=== PATIENT | male | born 1955 | race African-American/Black ===

== ENCOUNTER 2018-10-04 10:19 | Inpatient (IN) ==
[2018-10-04] MEDS ORDERED: ASPIRIN 325 MG TABLET PO STA (10:42)
[2018-10-04] MEDS ORDERED: methylPREDNISolone SOD SUC 125 MG/2 ML VIAL IV STA (10:42)
[2018-10-04] MEDS ORDERED: ALBUTEROL/IPRATROPIUM 3 ML NEB RESP TX STA (10:42)
[2018-10-04 11:03] LABS: Basophils % 0.2 % (0.0-0.8); Eosinophils % 0.2 % (0.00-10.9); Hematocrit 37.4 VOL% (42.0-52.0); Hemoglobin 12.3 GM/DL (14.0-18.0); Immature Granulocytes % 0.5 %; Immature Granulocytes Absolute 0.03 #; Lymphocytes # 0.9 10*3/uL (1.4-4.0); Lymphocytes % 14.8 % (21.2-54.2); Mean Corpuscular HGB Conc 32.9 GM/DL (32-36); Mean Corpuscular Volume 87.6 FL (87-102); Mean Platelet Volume 11.3 FL (9.6-12.0); Neutrophils % 76.3 % (38.7-73.9); Platelet Count 167 T/CUMM (130-400); Red Blood Count 4.27 MC/CUMM (3.8-5.5); Red Cell Distribution Width 17.3 % (9.3-17.3); White Blood Count 6.1 T/CUMM (4-12)
[2018-10-04 11:22] LABS: Albumin 3.5 G/DL (3.4-5.0); Bilirubin,Total 1.3 MG/DL (0.2-1.0); Calcium 8.8 MG/DL (8.5-10.1); Osmolality,Calculated 274.8 MOS/KG (273-304); Total Protein 7.2 G/DL (6.4-8.3)
[2018-10-04] MEDS ORDERED: ALBUTEROL 2.5 MG/3 ML NEB RESP TX STA (12:14)
[2018-10-04] MEDS ORDERED: ONDANSETRON 4 MG/2 ML VIAL IV PRN (14:37)
[2018-10-04] MEDS ORDERED: NICOTINE 21 MG/24 HR PATCH TRANSDERM PRN (14:37)
[2018-10-04] MEDS ORDERED: AZITHROMYCIN INJ 500 MG in SODIUM CHLORIDE 0.9% 250 ML IV SCH (15:00)
[2018-10-04] MEDS ORDERED: ENOXAPARIN 40 MG/0.4 ML SYRINGE SUBCUT SCH (15:00)
[2018-10-04] MEDS ORDERED: LORazepam 2 MG/1 ML VIAL IV PRN (15:14)
[2018-10-04] MEDS ORDERED: MAGNESIUM SULF RIDER 2 GM in PREMIX 1 EACH IV ONE (15:17)
[2018-10-04] MEDS ORDERED: MAGNESIUM SULF RIDER 4 GM in PREMIX 1 EACH IV PRN (15:18)
[2018-10-04 15:31] LABS: PT Patient Result 10.9 SECS; Partial Thromboplastin Time 25.9 SECS (0-40)
[2018-10-04 15:35] LABS: Risk Ratio 1.4; Thyroid Stimulating Hormone 0.345 uIU/ml (0.358-3.74); VLDL CHOLESTEROL 15.4 MG/DL
[2018-10-04] MEDS: SODIUM CHLORIDE 0.9% 1,000 ML IV SCH (15:56)
[2018-10-04 16:20] LABS: Folate 7.9 NG/ML (5.4-24.0)
[2018-10-04 16:30] LABS: Free T4 (Free Thyroxine) 0.89 NG/DL (0.76-1.46)
[2018-10-04] MEDS: ENOXAPARIN 80 MG/0.8 ML SYRINGE SUBCUT SCH (18:26)
[2018-10-04] MEDS: cefTRIAXone 1,000 MG in SYRINGE 1 EACH IV SCH (18:26)
[2018-10-04] MEDS: POTASSIUM CHLORIDE RIDER 10 MEQ in PREMIX 1 EACH IV SCH ×5 (18:32→23:10)
[2018-10-04] MEDS ORDERED: POTASSIUM CHLORIDE 20 MEQ TABLET PO SCH (21:00)
[2018-10-05] MEDS: POTASSIUM CHLORIDE RIDER 10 MEQ in PREMIX 1 EACH IV SCH (00:50)
[2018-10-05] MEDS: SODIUM CHLORIDE 0.9% 1,000 ML IV SCH (02:11)
[2018-10-05] MEDS: ENOXAPARIN 80 MG/0.8 ML SYRINGE SUBCUT SCH (05:28)
[2018-10-05 05:29] LABS: Hematocrit 36.3 VOL% (42.0-52.0); Hemoglobin 11.8 GM/DL (14.0-18.0); Immature Granulocytes % 0.6 %; Immature Granulocytes Absolute 0.03 #; Lymphocytes # 0.9 10*3/uL (1.4-4.0); Lymphocytes % 16.7 % (21.2-54.2); Mean Corpuscular HGB Conc 32.5 GM/DL (32-36); Mean Corpuscular Volume 87.1 FL (87-102); Mean Platelet Volume 12.2 FL (9.6-12.0); Monocytes % 10.2 % (1.7-12.7); Neutrophils % 72.5 % (38.7-73.9); Platelet Count 149 T/CUMM (130-400); Red Blood Count 4.17 MC/CUMM (3.8-5.5); Red Cell Distribution Width 17.2 % (9.3-17.3); White Blood Count 5.1 T/CUMM (4-12)
[2018-10-05 06:05] LABS: Albumin 2.8 G/DL (3.4-5.0); Calcium 8.9 MG/DL (8.5-10.1); Osmolality,Calculated 274.7 MOS/KG (273-304); Total Protein 6.9 G/DL (6.4-8.3)
[2018-10-05] MEDS: POTASSIUM CHLORIDE RIDER 10 MEQ in PREMIX 1 EACH IV PRN (08:11)
[2018-10-05 08:33] LABS: CKMB % 2.1 %
[2018-10-05 08:36] LABS: Troponin I 2.89 NG/ML (0.00-0.045)
[2018-10-05] MEDS ORDERED: amLODIPine 5 MG TABLET PO SCH (09:00)
[2018-10-05] MEDS ORDERED: METOPROLOL TARTRATE 25 MG TABLET PO SCH (09:00)
[2018-10-05] MEDS ORDERED: NITROGLYCERIN SL 0.4 MG TABLET SL PRN (09:05)
[2018-10-05] MEDS: MULTIVITAMIN (CENTRUM) TABLET PO SCH (09:23)
[2018-10-05] MEDS: FOLIC ACID 1 MG TABLET PO SCH (09:23)
[2018-10-05] MEDS: ALLOPURINOL 300 MG TABLET PO SCH (09:23)
[2018-10-05] MEDS: ROSUVASTATIN 20 MG TABLET PO SCH (09:23)
[2018-10-05] MEDS: ASPIRIN EC 81 MG TABLET PO SCH (09:24)
[2018-10-05] MEDS: PANTOPRAZOLE 40 MG TABLET PO SCH (09:24)
[2018-10-05] MEDS: THIAMINE 100 MG TABLET PO SCH (09:24)
[2018-10-05] MEDS ORDERED: diphenhydrAMINE CAP 25 MG CAPSULE PO ONE (09:35)
[2018-10-05] MEDS ORDERED: MAGNESIUM SULF RIDER 2 GM in PREMIX 1 EACH IV PRN (09:35)
[2018-10-05] MEDS ORDERED: DIAZEPAM 5 MG TABLET PO ONE (09:35)
[2018-10-05] MEDS ORDERED: POTASSIUM CHLORIDE RIDER 10 MEQ in PREMIX 1 EACH IV PRN (09:35)
[2018-10-05] MEDS ORDERED: LIDOCAINE 1% 20 ML VIAL ONE (11:10)
[2018-10-05] MEDS ORDERED: MIDAZOLAM 2 MG/2 ML VIAL ONE (11:39)
[2018-10-05] MEDS ORDERED: HYDROmorphone 2 MG/1 ML VIAL ONE (11:39)
[2018-10-05] MEDS ORDERED: ACETAMINOPHEN 325 MG TABLET PO PRN (12:15)
[2018-10-05] MEDS ORDERED: FUROSEMIDE 40 MG/4 ML VIAL ONE (12:16)
[2018-10-05] MEDS: SPIRONOLACTONE 25 MG TABLET PO SCH (14:15)
[2018-10-05] MEDS: FUROSEMIDE 40 MG/4 ML VIAL IV SCH (15:35)
[2018-10-05] MEDS: cefTRIAXone 1,000 MG in SYRINGE 1 EACH IV SCH (15:35)
[2018-10-05] MEDS: METOPROLOL SUCCINATE XL 25 MG TABLET PO SCH (22:03)
[2018-10-06 02:04] LABS: Basophils % 0.3 % (0.0-0.8); Eosinophils % 0.4 % (0.00-10.9); Hematocrit 42.3 VOL% (42.0-52.0); Hemoglobin 13.9 GM/DL (14.0-18.0); Immature Granulocytes % 0.6 %; Immature Granulocytes Absolute 0.06 #; Lymphocytes % 21.3 % (21.2-54.2); Mean Corpuscular HGB Conc 32.9 GM/DL (32-36); Mean Corpuscular Volume 87.6 FL (87-102); Mean Platelet Volume 10.6 FL (9.6-12.0); Monocytes % 6.5 % (1.7-12.7); Neutrophils % 70.9 % (38.7-73.9); Platelet Count 130 T/CUMM (130-400); Red Blood Count 4.83 MC/CUMM (3.8-5.5); Red Cell Distribution Width 17.1 % (9.3-17.3); White Blood Count 9.6 T/CUMM (4-12)
[2018-10-06 02:19] LABS: Albumin 3.2 G/DL (3.4-5.0); Bilirubin,Total 1.2 MG/DL (0.2-1.0); Calcium 9.4 MG/DL (8.5-10.1); Osmolality,Calculated 270.8 MOS/KG (273-304); Total Protein 7.9 G/DL (6.4-8.3)
[2018-10-06] MEDS: MAGNESIUM SULF RIDER 2 GM in PREMIX 1 EACH IV PRN (02:36)
[2018-10-06] MEDS: POTASSIUM CHLORIDE RIDER 10 MEQ in PREMIX 1 EACH IV PRN ×2 (02:36→05:20)
[2018-10-06] MEDS: POTASSIUM CHLORIDE 20 MEQ TABLET PO PRN ×6 (06:45→23:42)
[2018-10-06] MEDS: FOLIC ACID 1 MG TABLET PO SCH (09:21)
[2018-10-06] MEDS: THIAMINE 100 MG TABLET PO SCH (09:21)
[2018-10-06] MEDS: ROSUVASTATIN 20 MG TABLET PO SCH (09:21)
[2018-10-06] MEDS: MULTIVITAMIN (CENTRUM) TABLET PO SCH (09:21)
[2018-10-06] MEDS: METOPROLOL SUCCINATE XL 25 MG TABLET PO SCH ×2 (09:22→21:41)
[2018-10-06] MEDS: DOCUSATE SODIUM 100 MG CAPSULE PO PRN (09:22)
[2018-10-06] MEDS: ALLOPURINOL 300 MG TABLET PO SCH (09:22)
[2018-10-06] MEDS: FUROSEMIDE 40 MG/4 ML VIAL IV SCH (09:22)
[2018-10-06] MEDS: ASPIRIN EC 81 MG TABLET PO SCH (09:22)
[2018-10-06] MEDS: SPIRONOLACTONE 25 MG TABLET PO SCH (09:22)
[2018-10-06] MEDS: PANTOPRAZOLE 40 MG TABLET PO SCH (09:22)
[2018-10-06] MEDS: ENOXAPARIN 30 MG/0.3 ML SYRINGE SUBCUT SCH (09:22)
[2018-10-06] MEDS: cefTRIAXone 1,000 MG in SYRINGE 1 EACH IV SCH (15:34)
[2018-10-06] MEDS ORDERED: FUROSEMIDE 40 MG/4 ML VIAL IV ONE (16:00)
[2018-10-06] MEDS: POTASSIUM CHLORIDE 20 MEQ TABLET PO SCH (21:37)
[2018-10-06] MEDS: MAGNESIUM CHLORIDE 64 MG TABLET PO SCH (21:37)
[2018-10-07] MEDS: POTASSIUM CHLORIDE 20 MEQ TABLET PO PRN ×6 (01:45→16:05)
[2018-10-07] MEDS: MAGNESIUM SULF RIDER 2 GM in PREMIX 1 EACH IV PRN (01:55)
[2018-10-07 05:03] LABS: Basophils % 0.1 % (0.0-0.8); Eosinophils % 0.6 % (0.00-10.9); Hematocrit 36.4 VOL% (42.0-52.0); Hemoglobin 11.2 GM/DL (14.0-18.0); Immature Granulocytes % 0.6 %; Immature Granulocytes Absolute 0.04 #; Lymphocytes # 1.7 10*3/uL (1.4-4.0); Lymphocytes % 24.3 % (21.2-54.2); Mean Corpuscular HGB Conc 30.8 GM/DL (32-36); Mean Corpuscular Volume 90.3 FL (87-102); Mean Platelet Volume 12.2 FL (9.6-12.0); Monocytes % 14.5 % (1.7-12.7); Neutrophils % 59.9 % (38.7-73.9); Platelet Count 111 T/CUMM (130-400); Red Blood Count 4.03 MC/CUMM (3.8-5.5); Red Cell Distribution Width 17.3 % (9.3-17.3)
[2018-10-07 05:31] LABS: Albumin 2.4 G/DL (3.4-5.0); Bilirubin,Total 0.7 MG/DL (0.2-1.0); Osmolality,Calculated 273.7 MOS/KG (273-304); Total Protein 6.5 G/DL (6.4-8.3)
[2018-10-07] MEDS: ENOXAPARIN 30 MG/0.3 ML SYRINGE SUBCUT SCH (08:40)
[2018-10-07] MEDS: FUROSEMIDE 40 MG TABLET PO SCH (08:42)
[2018-10-07] MEDS: SPIRONOLACTONE 25 MG TABLET PO SCH (08:42)
[2018-10-07] MEDS: THIAMINE 100 MG TABLET PO SCH (08:42)
[2018-10-07] MEDS: POTASSIUM CHLORIDE 20 MEQ TABLET PO SCH ×2 (08:42→21:00)
[2018-10-07] MEDS: PANTOPRAZOLE 40 MG TABLET PO SCH (08:42)
[2018-10-07] MEDS: METOPROLOL SUCCINATE XL 25 MG TABLET PO SCH ×2 (08:43→21:00)
[2018-10-07] MEDS: ROSUVASTATIN 20 MG TABLET PO SCH (08:43)
[2018-10-07] MEDS: MULTIVITAMIN (CENTRUM) TABLET PO SCH (08:43)
[2018-10-07] MEDS: ALLOPURINOL 300 MG TABLET PO SCH (08:43)
[2018-10-07] MEDS: FOLIC ACID 1 MG TABLET PO SCH (08:43)
[2018-10-07] MEDS: DOCUSATE SODIUM 100 MG CAPSULE PO PRN (08:43)
[2018-10-07] MEDS: MAGNESIUM CHLORIDE 64 MG TABLET PO SCH ×2 (08:43→21:00)
[2018-10-07] MEDS: ASPIRIN EC 81 MG TABLET PO SCH (08:43)
[2018-10-07] MEDS: cefTRIAXone 1,000 MG in SYRINGE 1 EACH IV SCH (16:05)
[2018-10-07] MEDS: BUDESONIDE/FORMOTEROL 160-4.5 INHALER 6 GM INH SCH (21:00)
[2018-10-08 05:25] LABS: Basophils % 0.3 % (0.0-0.8); Eosinophils # 0.1 10*3/uL (0.0-0.87); Hematocrit 36.5 VOL% (42.0-52.0); Hemoglobin 11.5 GM/DL (14.0-18.0); Immature Granulocytes % 0.5 %; Immature Granulocytes Absolute 0.03 #; Lymphocytes # 1.8 10*3/uL (1.4-4.0); Lymphocytes % 26.7 % (21.2-54.2); Mean Corpuscular HGB Conc 31.5 GM/DL (32-36); Mean Corpuscular Volume 90.6 FL (87-102); Mean Platelet Volume 12.1 FL (9.6-12.0); Monocytes % 15.9 % (1.7-12.7); Neutrophils % 54.6 % (38.7-73.9); Platelet Count 124 T/CUMM (130-400); Red Blood Count 4.03 MC/CUMM (3.8-5.5); Red Cell Distribution Width 17.4 % (9.3-17.3); White Blood Count 6.6 T/CUMM (4-12)
[2018-10-08 05:50] LABS: Calcium 9.3 MG/DL (8.5-10.1); Osmolality,Calculated 272.7 MOS/KG (273-304)
[2018-10-08 07:03] LABS: Eosinophils 2 % (0-10); Lymphocytes 32 % (20-55); Segmented Neutrophils 48 % (50-85); Total Cells Counted 100
[2018-10-08 07:04] LABS: Hypochromasia 2+; Platelet Estimate Decreased; Target Cells 1+
[2018-10-08 07:05] LABS: Polychromasia Few
[2018-10-08] MEDS ORDERED: predniSONE 20 MG TABLET PO SCH (09:00)
[2018-10-08] MEDS: ENOXAPARIN 30 MG/0.3 ML SYRINGE SUBCUT SCH (09:39)
[2018-10-08] MEDS: ROSUVASTATIN 20 MG TABLET PO SCH (09:39)
[2018-10-08] MEDS: POTASSIUM CHLORIDE 20 MEQ TABLET PO SCH (09:40)
[2018-10-08] MEDS: METOPROLOL SUCCINATE XL 25 MG TABLET PO SCH (09:40)
[2018-10-08] MEDS: ASPIRIN EC 81 MG TABLET PO SCH (09:40)
[2018-10-08] MEDS: FOLIC ACID 1 MG TABLET PO SCH (09:40)
[2018-10-08] MEDS: SPIRONOLACTONE 25 MG TABLET PO SCH (09:40)
[2018-10-08] MEDS: ALLOPURINOL 300 MG TABLET PO SCH (09:41)
[2018-10-08] MEDS: MAGNESIUM CHLORIDE 64 MG TABLET PO SCH (09:41)
[2018-10-08] MEDS: THIAMINE 100 MG TABLET PO SCH (09:41)
[2018-10-08] MEDS: PANTOPRAZOLE 40 MG TABLET PO SCH (09:41)
[2018-10-08] MEDS: MULTIVITAMIN (CENTRUM) TABLET PO SCH (09:41)
[2018-10-08] MEDS: FUROSEMIDE 40 MG TABLET PO SCH (09:41)
[2018-10-08 12:13] VITALS: BP 114/75
[2018-10-08] MEDS: BUDESONIDE/FORMOTEROL 160-4.5 INHALER 6 GM INH SCH (12:49)
== END 2018-10-08 14:45 | disposition home or self-care (01) | DRG 280 ==
LOC: EDBD → EDUNIT# → N.ED 10:19 → N.EDINP 14:37 → N.TELEN 15:48
PROVIDERS: ADMIT Internal Medicine; ATTEND Internal Medicine
PROC: CLCCHCL (ICD-10-PCS; 2018-10-05 10:15)

== ENCOUNTER 2020-08-09 05:09 | Inpatient (IN) ==
[2020-08-09] MEDS ORDERED: ONDANSETRON 4 MG/2 ML VIAL IV STA ×2 (05:32→07:06)
[2020-08-09] MEDS ORDERED: SODIUM CHLORIDE 0.9% 1,000 ML IV STA (05:32)
[2020-08-09 06:04] LABS: Basophils % 0.1 % (0.0-0.8); Eosinophils # 0.2 10*3/uL (0.0-0.87); Eosinophils % 1.7 % (0.00-10.9); Hematocrit 40.3 VOL% (42.0-52.0); Hemoglobin 12.6 GM/DL (14.0-18.0); Immature Granulocytes % 0.4 %; Immature Granulocytes Absolute 0.04 #; Lymphocytes % 11.3 % (21.2-54.2); Mean Corpuscular HGB Conc 31.3 GM/DL (32-36); Mean Platelet Volume 11.6 FL (9.6-12.0); Neutrophils % 79.5 % (38.7-73.9); Platelet Count 343 T/CUMM (130-400); Red Blood Count 4.58 MC/CUMM (3.8-5.5); Red Cell Distribution Width 15.6 % (9.3-17.3); White Blood Count 8.9 T/CUMM (4-12)
[2020-08-09 06:31] LABS: Albumin 3.1 G/DL (3.4-5.0); Bilirubin,Total 0.6 MG/DL (0.2-1.0); Calcium 8.9 MG/DL (8.5-10.1); Osmolality,Calculated 275.5 MOS/KG (273-304); Total Protein 6.7 G/DL (6.4-8.2)
[2020-08-09 06:43] LABS: Hypochromasia 1+; Microcytosis 1+; Platelet Estimate Normal
[2020-08-09] MEDS ORDERED: HYDROmorphone 2 MG/1 ML VIAL IV STA (07:06)
[2020-08-09 08:31] LABS: Bacteria,Urine Occasional /HPF (Few); Bilirubin,Urine Negative (Negative); Blood, Urine Small mg/dL (Negative); Glucose,Urine (UA) Negative (Negative); Ketones,Urine Negative (Negative); Mucus,Urine Occasional /LPF (Occasional); Nitrite,Urine Negative (Negative); Protein,Urine Negative; RBC,Urine 3 /HPF (0-4); Squamous Epithelial Cell,Urine Occasional /HPF (0-10); Urine Appearance CLEAR (Clear); Urine Color Yellow (Yellow); Urine Specific Gravity 1.013 (1.001-1.035); Urine Urobilinogen < 2.0 EU/DL (0.2-1.0); WBC,Urine <1 /HPF (0-6)
[2020-08-09] MEDS ORDERED: ACETAMINOPHEN 325 MG TABLET PO PRN (10:19)
[2020-08-09] MEDS ORDERED: PROMETHAZINE 25 MG/1 ML VIAL IM PRN (10:19)
[2020-08-09] MEDS ORDERED: ONDANSETRON 4 MG/2 ML VIAL IV PRN (10:19)
[2020-08-09] MEDS ORDERED: carvediloL 3.125 MG TABLET PO SCH (10:30)
[2020-08-09] MEDS: LACTATED RINGERS 1,000 ML IV SCH ×2 (11:03→17:42)
[2020-08-09] MEDS ORDERED: MIDODRINE 5 MG TABLET PO SCH (15:00)
[2020-08-09] MEDS: MIDODRINE 5 MG TABLET PO SCH ×2 (15:08→22:16)
[2020-08-09] MEDS ORDERED: LACTATED RINGERS 1,000 ML IV ONE (17:39)
[2020-08-09] MEDS: FLUDROCORTISONE 0.1 MG TABLET PO SCH (18:00)
[2020-08-09] MEDS ORDERED: PNEUMOCOCCAL VACCINE (13 VALENT) 0.5 ML SYRINGE IM ONE (19:34)
[2020-08-10] MEDS: LACTATED RINGERS 1,000 ML IV SCH ×4 (02:19→11:01)
[2020-08-10 05:45] LABS: Basophils % 0.3 % (0.0-0.8); Eosinophils # 0.2 10*3/uL (0.0-0.87); Eosinophils % 2.4 % (0.00-10.9); Hematocrit 33.2 VOL% (42.0-52.0); Hemoglobin 10.7 GM/DL (14.0-18.0); Immature Granulocytes % 0.3 %; Immature Granulocytes Absolute 0.02 #; Lymphocytes # 2.3 10*3/uL (1.4-4.0); Lymphocytes % 34.9 % (21.2-54.2); Mean Corpuscular HGB Conc 32.2 GM/DL (32-36); Mean Corpuscular Volume 86.9 FL (87-102); Mean Platelet Volume 11.1 FL (9.6-12.0); Monocytes % 7.2 % (1.7-12.7); Neutrophils % 54.9 % (38.7-73.9); Platelet Count 289 T/CUMM (130-400); Red Blood Count 3.82 MC/CUMM (3.8-5.5); Red Cell Distribution Width 15.7 % (9.3-17.3); White Blood Count 6.5 T/CUMM (4-12)
[2020-08-10] MEDS ORDERED: GABAPENTIN 300 MG CAPSULE PO ONE (06:00)
[2020-08-10] MEDS ORDERED: ALVIMOPAN 12 MG CAPSULE PO ONE (06:00)
[2020-08-10] MEDS ORDERED: IBUPROFEN 600 MG TABLET PO ONE (06:00)
[2020-08-10 06:12] LABS: Calcium 8.6 MG/DL (8.5-10.1); Osmolality,Calculated 276.3 MOS/KG (273-304); Potassium 3.4 MMOL/L (3.5-5.1)
[2020-08-10] MEDS ORDERED: ROCURONIUM 50 MG/5 ML VIAL IV ONE (06:13)
[2020-08-10] MEDS ORDERED: LIDOCAINE 2% 5 ML VIAL ONE (06:13)
[2020-08-10] MEDS ORDERED: propofoL 200 MG/20 ML VIAL IV ONE (06:13)
[2020-08-10] MEDS ORDERED: fentaNYL 100 MCG/2 ML VIAL ONE (06:14)
[2020-08-10 06:16] LABS: Eosinophils 3 % (0-10); Lymphocytes 27 % (20-55); Platelet Estimate Normal; Segmented Neutrophils 63 % (50-85); Total Cells Counted 100
[2020-08-10] MEDS ORDERED: MIDAZOLAM 2 MG/2 ML VIAL ONE (06:18)
[2020-08-10] MEDS ORDERED: SUCCINYLCHOLINE 200 MG/10 ML VIAL ONE (06:18)
[2020-08-10] MEDS ORDERED: BUPIVACAINE MPF 0.25% 30 ML VIAL ONE ×2 (06:33→06:39)
[2020-08-10] MEDS ORDERED: DEXAMETHASONE 4 MG/1 ML VIAL ONE (06:34)
[2020-08-10] MEDS ORDERED: BUPIVACAINE 0.5% 50 ML VIAL ONE (06:41)
[2020-08-10] MEDS ORDERED: PHENYLEPHRINE 1 MG/10 ML SYRINGE IV ONE (07:22)
[2020-08-10] MEDS ORDERED: LACTATED RINGERS 1,000 ML IV ONE (07:22)
[2020-08-10] MEDS ORDERED: ERTAPENEM 1,000 MG in SODIUM CHLORIDE 0.9% 100 ML IV ONE (07:30)
[2020-08-10] MEDS ORDERED: PHENYLEPHRINE DRIP 20 MG/250 ML PREMIX IV ONE (07:33)
[2020-08-10] MEDS ORDERED: ERTAPENEM 1,000 MG VIAL ONE (07:37)
[2020-08-10] MEDS ORDERED: ONDANSETRON 4 MG/2 ML VIAL ONE (08:24)
[2020-08-10] MEDS: MIDODRINE 5 MG TABLET PO SCH ×3 (08:35→20:38)
[2020-08-10] MEDS ORDERED: INDOCYANINE GREEN 25 MG VIAL IV ONE (09:01)
[2020-08-10] MEDS ORDERED: TISSUE ADHESIVE 1 EACH APPLICATOR TOP ONE (09:01)
[2020-08-10] MEDS ORDERED: SEVOFLURANE 1 UNIT/15 MINUTE INH ONE ×3 (09:26→09:40)
[2020-08-10] MEDS ORDERED: NEOSTIGMINE 10 MG/10 ML VIAL ONE (09:44)
[2020-08-10] MEDS ORDERED: GLYCOPYRROLATE 0.4 MG/2 ML VIAL ONE (09:44)
[2020-08-10] MEDS ORDERED: ONDANSETRON 4 MG/2 ML VIAL IV PRN (10:19)
[2020-08-10] MEDS ORDERED: POTASSIUM CHLORIDE 20 MEQ/15 ML UDCUP PO ONE (10:55)
[2020-08-10] MEDS: FLUDROCORTISONE 0.1 MG TABLET PO SCH ×2 (11:33→20:38)
[2020-08-10] MEDS: ROSUVASTATIN 20 MG TABLET PO SCH (11:33)
[2020-08-10] MEDS: KETOROLAC 15 MG/1 ML VIAL IV SCH ×2 (11:35→15:47)
[2020-08-10 11:53] LABS: Eosinophils % 0.6 % (0.00-10.9); Hematocrit 36.7 VOL% (42.0-52.0); Hemoglobin 11.3 GM/DL (14.0-18.0); Immature Granulocytes % 0.2 %; Immature Granulocytes Absolute 0.01 #; Lymphocytes # 0.9 10*3/uL (1.4-4.0); Lymphocytes % 17.7 % (21.2-54.2); Mean Corpuscular HGB Conc 30.8 GM/DL (32-36); Mean Corpuscular Volume 89.5 FL (87-102); Mean Platelet Volume 11.5 FL (9.6-12.0); Monocytes % 1.9 % (1.7-12.7); Neutrophils % 79.6 % (38.7-73.9); Platelet Count 338 T/CUMM (130-400); Red Cell Distribution Width 15.9 % (9.3-17.3); White Blood Count 5.2 T/CUMM (4-12)
[2020-08-10 12:19] LABS: Anisocytosis Slight; Band Neutrophils 22 % (0-10); Eosinophils 2 % (0-10); Lymphocytes 18 % (20-55); Macrocytosis Slight; Metamyelocytes 1 %; Platelet Estimate Normal; Segmented Neutrophils 55 % (50-85); Total Cells Counted 100
[2020-08-10 12:25] LABS: Calcium 8.5 MG/DL (8.5-10.1); Osmolality,Calculated 271.7 MOS/KG (273-304); Potassium 3.3 MMOL/L (3.5-5.1)
[2020-08-10] MEDS ORDERED: POTASSIUM CHLORIDE RIDER 10 MEQ in PREMIX 1 EACH IV PRN (13:27)
[2020-08-10] MEDS: HYDROmorphone 2 MG/1 ML VIAL IV PRN (16:38)
[2020-08-10] MEDS: ALVIMOPAN 12 MG CAPSULE PO SCH (20:38)
[2020-08-11] MEDS: KETOROLAC 15 MG/1 ML VIAL IV SCH ×5 (00:15→23:42)
[2020-08-11] MEDS: ENOXAPARIN 40 MG/0.4 ML SYRINGE SUBCUT SCH (03:40)
[2020-08-11] MEDS: LACTATED RINGERS 1,000 ML IV SCH ×3 (03:43→18:43)
[2020-08-11] MEDS ORDERED: ENOXAPARIN 40 MG/0.4 ML SYRINGE SUBCUT SCH (05:00)
[2020-08-11 06:55] LABS: Basophils % 0.2 % (0.0-0.8); Hematocrit 30.6 VOL% (42.0-52.0); Hemoglobin 9.9 GM/DL (14.0-18.0); Immature Granulocytes % 0.3 %; Immature Granulocytes Absolute 0.03 #; Lymphocytes # 1.3 10*3/uL (1.4-4.0); Lymphocytes % 12.3 % (21.2-54.2); Mean Corpuscular HGB Conc 32.4 GM/DL (32-36); Mean Corpuscular Volume 86.4 FL (87-102); Mean Platelet Volume 11.6 FL (9.6-12.0); Monocytes % 8.6 % (1.7-12.7); Neutrophils % 78.6 % (38.7-73.9); Platelet Count 291 T/CUMM (130-400); Red Blood Count 3.54 MC/CUMM (3.8-5.5); Red Cell Distribution Width 15.8 % (9.3-17.3); White Blood Count 10.8 T/CUMM (4-12)
[2020-08-11 07:13] LABS: Calcium 8.6 MG/DL (8.5-10.1); Osmolality,Calculated 276.4 MOS/KG (273-304); Potassium 3.9 MMOL/L (3.5-5.1)
[2020-08-11] MEDS ORDERED: MAGNESIUM SULF RIDER 4 GM in PREMIX 1 EACH IV PRN (07:20)
[2020-08-11] MEDS ORDERED: MAGNESIUM SULF RIDER 2 GM in PREMIX 1 EACH IV PRN (07:20)
[2020-08-11] MEDS: ROSUVASTATIN 20 MG TABLET PO SCH (09:11)
[2020-08-11] MEDS: ALVIMOPAN 12 MG CAPSULE PO SCH ×2 (09:11→20:44)
[2020-08-11] MEDS: FLUDROCORTISONE 0.1 MG TABLET PO SCH ×2 (09:12→20:54)
[2020-08-11] MEDS: MIDODRINE 5 MG TABLET PO SCH ×3 (09:12→20:44)
[2020-08-11 10:28] LABS: Bilirubin,Urine Negative (Negative); Blood, Urine Large mg/dL (Negative); Glucose,Urine (UA) Negative (Negative); Ketones,Urine Negative (Negative); Mucus,Urine Occasional /LPF (Occasional); Nitrite,Urine Negative (Negative); Protein,Urine Negative; RBC,Urine 298 /HPF (0-4); Squamous Epithelial Cell,Urine Occasional /HPF (0-10); Urine Appearance CLEAR (Clear); Urine Color Yellow (Yellow); Urine Specific Gravity 1.013 (1.001-1.035); WBC,Urine 3 /HPF (0-6)
[2020-08-11] MEDS ORDERED: LIDOCAINE 2% TOP JELLY 20 ML VIAL INTRAURETH ONE (10:57)
[2020-08-11] MEDS: HYDROmorphone 2 MG/1 ML VIAL IV PRN (19:34)
[2020-08-12] MEDS: ENOXAPARIN 40 MG/0.4 ML SYRINGE SUBCUT SCH (03:43)
[2020-08-12] MEDS: LACTATED RINGERS 1,000 ML IV SCH (03:44)
[2020-08-12] MEDS: KETOROLAC 15 MG/1 ML VIAL IV SCH ×2 (03:45→11:42)
[2020-08-12 06:17] LABS: Basophils % 0.1 % (0.0-0.8); Eosinophils # 0.1 10*3/uL (0.0-0.87); Eosinophils % 0.5 % (0.00-10.9); Hematocrit 30.3 VOL% (42.0-52.0); Hemoglobin 9.6 GM/DL (14.0-18.0); Immature Granulocytes % 0.6 %; Immature Granulocytes Absolute 0.07 #; Lymphocytes # 1.1 10*3/uL (1.4-4.0); Lymphocytes % 10.2 % (21.2-54.2); Mean Corpuscular HGB Conc 31.7 GM/DL (32-36); Mean Corpuscular Volume 87.1 FL (87-102); Mean Platelet Volume 11.3 FL (9.6-12.0); Monocytes % 8.6 % (1.7-12.7); Platelet Count 314 T/CUMM (130-400); Red Blood Count 3.48 MC/CUMM (3.8-5.5); Red Cell Distribution Width 15.5 % (9.3-17.3)
[2020-08-12 06:58] LABS: Calcium 8.8 MG/DL (8.5-10.1); Osmolality,Calculated 273.5 MOS/KG (273-304); Potassium 3.4 MMOL/L (3.5-5.1)
[2020-08-12 07:51] LABS: Anisocytosis 1+; Band Neutrophils 9 % (0-10); Burr Cells Few; Hypochromasia 1+; Lymphocytes 13 % (20-55); Macrocytosis 1+; Platelet Estimate Normal; Segmented Neutrophils 71 % (50-85); Total Cells Counted 100
[2020-08-12 08:35] VITALS: BP 107/64
[2020-08-12] MEDS: ROSUVASTATIN 20 MG TABLET PO SCH (08:44)
[2020-08-12] MEDS: ALVIMOPAN 12 MG CAPSULE PO SCH (08:44)
[2020-08-12] MEDS: FLUDROCORTISONE 0.1 MG TABLET PO SCH (08:44)
[2020-08-12] MEDS: MIDODRINE 5 MG TABLET PO SCH (08:45)
[2020-08-12] MEDS ORDERED: TAMSULOSIN 0.4 MG CAPSULE PO SCH (09:00)
== END 2020-08-12 13:33 | disposition home or self-care (01) | DRG 330 ==
LOC: N.ED 05:09 → N.EDINP 08:51 → N.3E 09:09
PROVIDERS: ADMIT Surgery; ATTEND Surgery

== ENCOUNTER 2020-08-28 22:43 | Inpatient (IN) ==
[2020-08-28] MEDS ORDERED: SODIUM CHLORIDE 0.9% 1,000 ML IV STA (23:08)
[2020-08-28 23:26] LABS: Basophils % 0.2 % (0.0-0.8); Hematocrit 26.5 VOL% (42.0-52.0); Hemoglobin 9.3 GM/DL (14.0-18.0); Immature Granulocytes % 1.4 %; Immature Granulocytes Absolute 0.36 #; Lymphocytes # 1.7 10*3/uL (1.4-4.0); Lymphocytes % 6.4 % (21.2-54.2); Mean Corpuscular HGB Conc 35.1 GM/DL (32-36); Mean Corpuscular Volume 77.3 FL (87-102); Mean Platelet Volume 11.4 FL (9.6-12.0); Monocytes % 8.4 % (1.7-12.7); Neutrophils % 83.6 % (38.7-73.9); Platelet Count 574 T/CUMM (130-400); Red Blood Count 3.43 MC/CUMM (3.8-5.5); Red Cell Distribution Width 15.7 % (9.3-17.3); White Blood Count 26.1 T/CUMM (4-12)
[2020-08-28 23:35] LABS: INR 1.2; PT Patient Result 13.7 SECS (9.8-11.9)
[2020-08-28 23:55] LABS: Alanine Aminotransferase 16 U/L (16-61); Albumin 1.6 G/DL (3.4-5.0); Alkaline Phosphatase 116 U/L (45-117); Aspartate Amino Transferase 38 U/L (0-37); Blood Urea Nitrogen 52 MG/DL (7-18); Calcium 8.1 MG/DL (8.5-10.1); Carbon Dioxide 33 MMOL/L (21-32); Estimated Glom Filtration Rate 14 ML/MIN; Glucose 100 MG/DL (74-106); Osmolality,Calculated 286.8 MOS/KG (273-304); Potassium 3.9 MMOL/L (3.5-5.1); Sodium 137 MMOL/L (136-145); Total Protein 6.4 G/DL (6.4-8.2); Troponin I < 0.015 NG/ML (0.00-0.045)
[2020-08-29 00:19] LABS: Lymphocytes 4 % (20-55); Platelet Estimate Increased; Segmented Neutrophils 92 % (50-85); Total Cells Counted 100
[2020-08-29 00:20] LABS: Microcytosis 2+
[2020-08-29 00:21] LABS: Hypochromasia Slight; Polychromasia Slight; Target Cells 1+
[2020-08-29] MEDS ORDERED: PHENYLEPHRINE DRIP 40 MG/250 ML PREMIX IV ONE (00:36)
[2020-08-29] MEDS ORDERED: SODIUM CHLORIDE 0.9% 1,000 ML IV STA (00:43)
[2020-08-29] MEDS ORDERED: PIPERACILLIN/TAZOBACTAM 3,375 MG in SODIUM CHLORIDE 0.9% 100 ML IV STA (00:47)
[2020-08-29] MEDS: PHENYLEPHRINE DRIP 40 MG/250 ML PREMIX IV PRN ×2 (02:15→22:21)
[2020-08-29] MEDS ORDERED: ALBUTEROL 2.5 MG/3 ML NEB RESP TX PRN (04:13)
[2020-08-29] MEDS ORDERED: PHENYLEPHRINE DRIP 40 MG/250 ML PREMIX IV SCH (04:30)
[2020-08-29] MEDS: SODIUM CHLORIDE 0.45% 1,000 ML IV SCH ×3 (05:27→18:30)
[2020-08-29] MEDS: HEPARIN 5,000 UNIT/1 ML VIAL SUBCUT SCH ×3 (05:28→22:08)
[2020-08-29 06:41] LABS: Basophils # 0.1 10*3/uL (0.0-0.2); Basophils % 0.2 % (0.0-0.8); Eosinophils % 0.1 % (0.00-10.9); Hematocrit 28.8 VOL% (42.0-52.0); Hemoglobin 9.5 GM/DL (14.0-18.0); Immature Granulocytes % 0.9 %; Immature Granulocytes Absolute 0.29 #; Lymphocytes # 1.3 10*3/uL (1.4-4.0); Lymphocytes % 4.1 % (21.2-54.2); Mean Platelet Volume 11.2 FL (9.6-12.0); Monocytes % 7.9 % (1.7-12.7); Neutrophils % 86.8 % (38.7-73.9); Platelet Count 661 T/CUMM (130-400); Red Cell Distribution Width 16.3 % (9.3-17.3); White Blood Count 31.8 T/CUMM (4-12)
[2020-08-29] MEDS ORDERED: HYDROCORTISONE 100 MG VIAL IV ONE (06:52)
[2020-08-29] MEDS ORDERED: NOREPINEPHRINE 4 MG/4 ML VIAL IV ONE (06:53)
[2020-08-29 07:08] LABS: Hypochromasia 1+; Lymphocytes 7 % (20-55); Microcytosis 1+; Platelet Estimate Increased; Segmented Neutrophils 84 % (50-85); Total Cells Counted 100
[2020-08-29] MEDS: NOREPINEPHRINE 8 MG in SODIUM CHLORIDE 0.9% 242 ML IV PRN ×3 (07:08→20:06)
[2020-08-29 07:22] LABS: Alanine Aminotransferase 16 U/L (16-61); Albumin 1.6 G/DL (3.4-5.0); Alkaline Phosphatase 130 U/L (45-117); Aspartate Amino Transferase 37 U/L (0-37); Blood Urea Nitrogen 49 MG/DL (7-18); Calcium 7.4 MG/DL (8.5-10.1); Carbon Dioxide 24 MMOL/L (21-32); Estimated Glom Filtration Rate 16 ML/MIN; Glucose 86 MG/DL (74-106); Potassium 3.6 MMOL/L (3.5-5.1); Sodium 136 MMOL/L (136-145); Total Protein 6.2 G/DL (6.4-8.2); Triglycerides 73 MG/DL (2-150); VLDL CHOLESTEROL 14.6 MG/DL
[2020-08-29] MEDS: ALBUMIN 25% 12.5 GM/50 ML VIAL IV SCH ×3 (07:36→16:38)
[2020-08-29 07:48] LABS: HDL Cholesterol < 10 MG/DL (40-60)
[2020-08-29] MEDS ORDERED: MIDAZOLAM 2 MG/2 ML VIAL IV ONE (08:12)
[2020-08-29] MEDS ORDERED: PANTOPRAZOLE 40 MG TABLET PO SCH (09:00)
[2020-08-29] MEDS: CEFOXITIN IV SCH ×2 (09:37→20:28)
[2020-08-29] MEDS: SODIUM CHLORIDE 0.9% IV SCH ×2 (09:37→20:28)
[2020-08-29] MEDS: metroNIDAZOLE INJ 500 MG in PREMIX 1 EACH IV SCH ×3 (09:38→20:29)
[2020-08-29] MEDS: HYDROCORTISONE 100 MG VIAL IV SCH ×2 (13:34→18:40)
[2020-08-29] MEDS ORDERED: ALPRAZolam 0.25 MG TABLET PO ONE (14:41)
[2020-08-29] MEDS: PANTOPRAZOLE 40 MG VIAL IV SCH (15:06)
[2020-08-29] MEDS ORDERED: MIDAZOLAM 2 MG/2 ML VIAL ONE (16:37)
[2020-08-29] MEDS ORDERED: SODIUM CHLORIDE 0.9% 1,000 ML IV ONE ×2 (17:14→19:35)
[2020-08-29] MEDS: ERTAPENEM 1,000 MG in SODIUM CHLORIDE 0.9% 100 ML IV SCH (20:28)
[2020-08-30] MEDS: NOREPINEPHRINE 16 MG in SODIUM CHLORIDE 0.9% 234 ML IV PRN ×4 (00:14→20:06)
[2020-08-30] MEDS: ALBUMIN 25% 12.5 GM/50 ML VIAL IV SCH ×3 (00:39→16:15)
[2020-08-30] MEDS: HYDROCORTISONE 100 MG VIAL IV SCH ×4 (00:39→18:21)
[2020-08-30] MEDS: metroNIDAZOLE INJ 500 MG in PREMIX 1 EACH IV SCH ×4 (01:07→21:57)
[2020-08-30 01:26] LABS: Amorphous Crystals,Urine Few /HPF (Few); Bacteria,Urine Many /HPF (Few); Bilirubin,Urine Negative (Negative); Blood, Urine Large mg/dL (Negative); Glucose,Urine (UA) Negative (Negative); Ketones,Urine Negative (Negative); Nitrite,Urine Negative (Negative); Protein,Urine 30 MG/DL; RBC,Urine 111 /HPF (0-4); Squamous Epithelial Cell,Urine Occasional /HPF (0-10); Urine Appearance CLOUDY (Clear); Urine Color Amber (Yellow); Urine Specific Gravity 1.008 (1.001-1.035); Urine Urobilinogen < 2.0 EU/DL (0.2-1.0); WBC,Urine 80 /HPF (0-6)
[2020-08-30 01:36] LABS: Barbiturates Screen,Urine Negative (Negative); Benzodiazepines Screen,Urine Negative (Negative); Cannabinoid Screen,Urine Negative (Negative); Opiate Screen,Urine Positive (Negative); Phencyclidine Screen,Urine Negative (Negative)
[2020-08-30] MEDS: SODIUM CHLORIDE 0.45% 1,000 ML IV SCH ×4 (04:39→22:52)
[2020-08-30 05:01] LABS: Basophils # 0.1 10*3/uL (0.0-0.2); Basophils % 0.3 % (0.0-0.8); Hematocrit 30.1 VOL% (42.0-52.0); Hemoglobin 10.3 GM/DL (14.0-18.0); Immature Granulocytes % 2.2 %; Immature Granulocytes Absolute 0.76 #; Lymphocytes # 2.1 10*3/uL (1.4-4.0); Lymphocytes % 5.9 % (21.2-54.2); Mean Corpuscular HGB Conc 34.2 GM/DL (32-36); Mean Corpuscular Volume 79.4 FL (87-102); Monocytes % 3.9 % (1.7-12.7); Neutrophils % 87.7 % (38.7-73.9); Platelet Count 656 T/CUMM (130-400); Red Blood Count 3.79 MC/CUMM (3.8-5.5); Red Cell Distribution Width 16.8 % (9.3-17.3); White Blood Count 35.1 T/CUMM (4-12)
[2020-08-30 05:19] LABS: Albumin 1.9 G/DL (3.4-5.0); Bilirubin,Total 0.6 MG/DL (0.2-1.0); Calcium 7.4 MG/DL (8.5-10.1); Osmolality,Calculated 284.2 MOS/KG (273-304); Potassium 3.9 MMOL/L (3.5-5.1); Total Protein 6.1 G/DL (6.4-8.2)
[2020-08-30 05:28] LABS: Burr Cells Slight; Hypochromasia Slight; Lymphocytes 4 % (20-55); Microcytosis 1+; Ovalocytes Slight; Platelet Estimate Increased; Segmented Neutrophils 91 % (50-85); Total Cells Counted 100
[2020-08-30] MEDS: HEPARIN 5,000 UNIT/1 ML VIAL SUBCUT SCH ×3 (06:00→21:59)
[2020-08-30] MEDS ORDERED: ALBUMIN 5% 25 GM/500 ML VIAL IV ONE (07:24)
[2020-08-30] MEDS ORDERED: MAGNESIUM SULF RIDER 1 GM/100 ML PREMIX IV ONE (08:14)
[2020-08-30] MEDS: PANTOPRAZOLE 40 MG VIAL IV SCH (08:44)
[2020-08-30] MEDS: CEFOXITIN IV SCH ×2 (10:05→21:00)
[2020-08-30] MEDS: PHENYLEPHRINE DRIP 40 MG/250 ML PREMIX IV PRN ×2 (10:05→17:32)
[2020-08-30] MEDS: SODIUM CHLORIDE 0.9% IV SCH ×2 (10:05→21:00)
[2020-08-30] MEDS ORDERED: PANTOPRAZOLE 40 MG VIAL IV SCH (14:42)
[2020-08-30] MEDS: ERTAPENEM 1,000 MG in SODIUM CHLORIDE 0.9% 100 ML IV SCH (21:59)
[2020-08-31] MEDS: ALBUMIN 25% 12.5 GM/50 ML VIAL IV SCH ×3 (01:40→15:20)
[2020-08-31] MEDS: HYDROCORTISONE 100 MG VIAL IV SCH ×4 (01:43→18:29)
[2020-08-31] MEDS: metroNIDAZOLE INJ 500 MG in PREMIX 1 EACH IV SCH ×4 (01:44→21:40)
[2020-08-31] MEDS: NOREPINEPHRINE 16 MG in SODIUM CHLORIDE 0.9% 234 ML IV PRN (02:47)
[2020-08-31 05:05] LABS: Basophils # 0.1 10*3/uL (0.0-0.2); Basophils % 0.2 % (0.0-0.8); Hematocrit 26.8 VOL% (42.0-52.0); Hemoglobin 8.9 GM/DL (14.0-18.0); Immature Granulocytes % 3.6 %; Immature Granulocytes Absolute 1.12 #; Lymphocytes # 1.8 10*3/uL (1.4-4.0); Lymphocytes % 5.8 % (21.2-54.2); Mean Corpuscular HGB Conc 33.2 GM/DL (32-36); Mean Corpuscular Volume 78.8 FL (87-102); Mean Platelet Volume 10.8 FL (9.6-12.0); Monocytes % 7.1 % (1.7-12.7); Neutrophils % 83.3 % (38.7-73.9); Platelet Count 447 T/CUMM (130-400); Red Cell Distribution Width 16.8 % (9.3-17.3); White Blood Count 30.8 T/CUMM (4-12)
[2020-08-31 05:22] LABS: Calcium 6.9 MG/DL (8.5-10.1); Osmolality,Calculated 289.1 MOS/KG (273-304); Potassium 4.1 MMOL/L (3.5-5.1)
[2020-08-31 05:23] LABS: Hypochromasia 1+; Lymphocytes 3 % (20-55); Microcytosis 1+; Platelet Estimate Adequate; Segmented Neutrophils 92 % (50-85); Total Cells Counted 100
[2020-08-31 05:24] LABS: Burr Cells Slight; Ovalocytes Slight
[2020-08-31] MEDS: HEPARIN 5,000 UNIT/1 ML VIAL SUBCUT SCH ×3 (07:00→22:00)
[2020-08-31] MEDS: SODIUM CHLORIDE 0.45% 1,000 ML IV SCH ×3 (07:24→13:11)
[2020-08-31] MEDS: PANTOPRAZOLE 40 MG VIAL IV SCH (09:15)
[2020-08-31] MEDS: SODIUM CHLORIDE 0.9% IV SCH ×2 (09:15→20:00)
[2020-08-31] MEDS: CEFOXITIN IV SCH ×2 (09:15→20:00)
[2020-08-31] MEDS ORDERED: FUROSEMIDE 20 MG/2 ML VIAL IV ONE (14:02)
[2020-08-31] MEDS ORDERED: DEXTROSE 10% 1,000 ML IV PRN (17:00)
[2020-08-31] MEDS: MULTIVITAMIN INJ 10 ML, ZINC/COPPER/MANGANESE/SELENIUM 1 ML in AMINO ACIDS/DEXT/LYTES 5... IV SCH (18:27)
[2020-08-31] MEDS: ERTAPENEM 1,000 MG in SODIUM CHLORIDE 0.9% 100 ML IV SCH (21:40)
[2020-09-01] MEDS: ALBUMIN 25% 12.5 GM/50 ML VIAL IV SCH ×3 (00:33→17:51)
[2020-09-01] MEDS: HYDROCORTISONE 100 MG VIAL IV SCH ×5 (00:34→22:05)
[2020-09-01] MEDS: metroNIDAZOLE INJ 500 MG in PREMIX 1 EACH IV SCH ×4 (03:30→20:55)
[2020-09-01 04:52] LABS: Basophils % 0.1 % (0.0-0.8); Hematocrit 24.6 VOL% (42.0-52.0); Hemoglobin 8.4 GM/DL (14.0-18.0); Immature Granulocytes % 2.6 %; Immature Granulocytes Absolute 0.51 #; Lymphocytes # 0.8 10*3/uL (1.4-4.0); Lymphocytes % 3.9 % (21.2-54.2); Mean Corpuscular HGB Conc 34.1 GM/DL (32-36); Mean Corpuscular Volume 77.4 FL (87-102); Mean Platelet Volume 10.5 FL (9.6-12.0); Monocytes % 7.1 % (1.7-12.7); Neutrophils % 86.3 % (38.7-73.9); Platelet Count 278 T/CUMM (130-400); Red Blood Count 3.18 MC/CUMM (3.8-5.5); Red Cell Distribution Width 16.7 % (9.3-17.3); White Blood Count 19.3 T/CUMM (4-12)
[2020-09-01 05:06] LABS: Calcium 6.6 MG/DL (8.5-10.1); Osmolality,Calculated 297.2 MOS/KG (273-304); Potassium 3.9 MMOL/L (3.5-5.1)
[2020-09-01 05:10] LABS: Alanine Aminotransferase < 6 U/L (16-61); Albumin 2.3 G/DL (3.4-5.0); Alkaline Phosphatase 54 U/L (45-117); Aspartate Amino Transferase 14 U/L (0-37); Blood Urea Nitrogen 74 MG/DL (7-18); Calcium 6.8 MG/DL (8.5-10.1); Carbon Dioxide 20 MMOL/L (21-32); Estimated Glom Filtration Rate 12 ML/MIN; Glucose 262 MG/DL (74-106); Osmolality,Calculated 298.2 MOS/KG (273-304); Potassium 3.9 MMOL/L (3.5-5.1); Sodium 134 MMOL/L (136-145); Total Protein 5.5 G/DL (6.4-8.2)
[2020-09-01 05:14] LABS: Band Neutrophils 1 % (0-10); Hypochromasia 1+; Lymphocytes 4 % (20-55); Segmented Neutrophils 89 % (50-85); Total Cells Counted 100
[2020-09-01 05:16] LABS: Microcytosis 1+; Ovalocytes Slight
[2020-09-01 05:17] LABS: Platelet Estimate Normal
[2020-09-01] MEDS: HEPARIN 5,000 UNIT/1 ML VIAL SUBCUT SCH ×3 (06:21→22:03)
[2020-09-01] MEDS: CEFOXITIN IV SCH (08:35)
[2020-09-01] MEDS: SODIUM CHLORIDE 0.9% IV SCH (08:35)
[2020-09-01] MEDS: PANTOPRAZOLE 40 MG VIAL IV SCH (09:45)
[2020-09-01] MEDS: NOREPINEPHRINE 16 MG in SODIUM CHLORIDE 0.9% 234 ML IV PRN (09:55)
[2020-09-01] MEDS: FAT EMULSION 20% 250 ML IV SCH (15:11)
[2020-09-01] MEDS: MULTIVITAMIN INJ 10 ML, ZINC/COPPER/MANGANESE/SELENIUM 1 ML in AMINO ACIDS/DEXT/LYTES 5... IV SCH (17:52)
[2020-09-01] MEDS: ERTAPENEM 1,000 MG in SODIUM CHLORIDE 0.9% 100 ML IV SCH (21:59)
[2020-09-02] MEDS: ALBUMIN 25% 12.5 GM/50 ML VIAL IV SCH ×4 (00:50→21:46)
[2020-09-02] MEDS: metroNIDAZOLE INJ 500 MG in PREMIX 1 EACH IV SCH ×4 (01:35→22:03)
[2020-09-02 05:10] LABS: Basophils % 0.1 % (0.0-0.8); Hematocrit 24.4 VOL% (42.0-52.0); Hemoglobin 8.1 GM/DL (14.0-18.0); Immature Granulocytes % 4.4 %; Immature Granulocytes Absolute 0.85 #; Lymphocytes # 0.7 10*3/uL (1.4-4.0); Lymphocytes % 3.4 % (21.2-54.2); Mean Corpuscular HGB Conc 33.2 GM/DL (32-36); Mean Corpuscular Volume 78.7 FL (87-102); Mean Platelet Volume 11.2 FL (9.6-12.0); Monocytes % 10.6 % (1.7-12.7); Neutrophils % 81.5 % (38.7-73.9); Platelet Count 185 T/CUMM (130-400); White Blood Count 19.5 T/CUMM (4-12)
[2020-09-02] MEDS: HYDROCORTISONE 100 MG VIAL IV SCH ×4 (05:15→21:47)
[2020-09-02] MEDS: HEPARIN 5,000 UNIT/1 ML VIAL SUBCUT SCH ×3 (05:20→21:47)
[2020-09-02 05:34] LABS: Calcium 7.1 MG/DL (8.5-10.1); Osmolality,Calculated 301.1 MOS/KG (273-304); Potassium 3.6 MMOL/L (3.5-5.1)
[2020-09-02 05:38] LABS: Lymphocytes 5 % (20-55); Platelet Estimate Normal; Segmented Neutrophils 86 % (50-85); Total Cells Counted 100
[2020-09-02 05:39] LABS: Hypochromasia Slight; Microcytosis Slight
[2020-09-02] MEDS: PANTOPRAZOLE 40 MG VIAL IV SCH (08:58)
[2020-09-02] MEDS: FAT EMULSION 20% 250 ML IV SCH (16:00)
[2020-09-02] MEDS: MULTIVITAMIN INJ 10 ML, ZINC/COPPER/MANGANESE/SELENIUM 1 ML in AMINO ACIDS/DEXT/LYTES 5... IV SCH (17:00)
[2020-09-02] MEDS: ALBUTEROL/IPRATROPIUM 3 ML NEB RESP TX SCH (20:06)
[2020-09-02] MEDS: ERTAPENEM 1,000 MG in SODIUM CHLORIDE 0.9% 100 ML IV SCH (21:47)
[2020-09-03] MEDS ORDERED: LORazepam 2 MG/1 ML VIAL IV PRN (02:22)
[2020-09-03] MEDS: ALBUTEROL/IPRATROPIUM 3 ML NEB RESP TX SCH ×4 (02:44→21:17)
[2020-09-03] MEDS: metroNIDAZOLE INJ 500 MG in PREMIX 1 EACH IV SCH ×4 (04:06→21:45)
[2020-09-03] MEDS: HYDROCORTISONE 100 MG VIAL IV SCH ×3 (04:06→21:38)
[2020-09-03 04:19] LABS: Basophils % 0.1 % (0.0-0.8); Hematocrit 25.1 VOL% (42.0-52.0); Hemoglobin 8.3 GM/DL (14.0-18.0); Immature Granulocytes % 4.7 %; Immature Granulocytes Absolute 1.09 #; Lymphocytes # 0.6 10*3/uL (1.4-4.0); Lymphocytes % 2.4 % (21.2-54.2); Mean Corpuscular HGB Conc 33.1 GM/DL (32-36); Mean Corpuscular Volume 80.2 FL (87-102); Mean Platelet Volume 11.9 FL (9.6-12.0); Neutrophils % 82.8 % (38.7-73.9); Platelet Count 158 T/CUMM (130-400); Red Blood Count 3.13 MC/CUMM (3.8-5.5); Red Cell Distribution Width 17.6 % (9.3-17.3)
[2020-09-03 04:36] LABS: Calcium 7.6 MG/DL (8.5-10.1); Osmolality,Calculated 308.2 MOS/KG (273-304); Potassium 3.7 MMOL/L (3.5-5.1)
[2020-09-03 04:40] LABS: Lymphocytes 8 % (20-55); Segmented Neutrophils 82 % (50-85); Total Cells Counted 100
[2020-09-03 04:44] LABS: Hypochromasia 2+; Ovalocytes 1+; Platelet Estimate Normal
[2020-09-03] MEDS ORDERED: ALBUTEROL/IPRATROPIUM 3 ML NEB RESP TX STA (05:37)
[2020-09-03] MEDS ORDERED: flumazeniL 0.5 MG/5 ML VIAL IV ONE ×2 (06:18→06:20)
[2020-09-03] MEDS: HEPARIN 5,000 UNIT/1 ML VIAL SUBCUT SCH ×3 (06:23→21:39)
[2020-09-03] MEDS: ALBUMIN 25% 12.5 GM/50 ML VIAL IV SCH ×3 (06:23→21:39)
[2020-09-03 06:43] LABS: ABG Base Excess -9.1 MMOL/L (-2.5-2.5); ABG HCO3 16.8 MMOL/L (20-26); ABG Oxygen Saturation 78.8 % (95-100); ABG PCO2 55.4 MM HG (35-48); ABG PO2 55.2 MM HG (80-95); ABG TCO2 18.9 MMOL/L (23-27)
[2020-09-03 06:44] LABS: ABG PH 7.159 (7.35-7.45)
[2020-09-03] MEDS ORDERED: ETOMIDATE 20 MG/10 ML VIAL IV ONE ×2 (08:27→08:32)
[2020-09-03] MEDS ORDERED: SUCCINYLCHOLINE 200 MG/10 ML VIAL ONE (08:28)
[2020-09-03] MEDS ORDERED: SUCCINYLCHOLINE 200 MG/10 ML VIAL IV ONE (08:33)
[2020-09-03] MEDS ORDERED: SODIUM CHLORIDE 0.9% 500 ML IV ONE (08:37)
[2020-09-03 09:26] LABS: Allen Test Positive; Pt O2 Delivery Device Ventilator
[2020-09-03] MEDS: PANTOPRAZOLE 40 MG VIAL IV SCH (09:26)
[2020-09-03] MEDS: MIDAZOLAM 100 MG in SODIUM CHLORIDE 0.9% 80 ML IV PRN (09:27)
[2020-09-03 09:28] LABS: ABG Base Excess -8.9 MMOL/L (-2.5-2.5); ABG HCO3 17.2 MMOL/L (20-26); ABG Oxygen Saturation 94.4 % (95-100); ABG PH 7.221 (7.35-7.45); ABG PO2 82.4 MM HG (80-95); ABG TCO2 17.5 MMOL/L (23-27)
[2020-09-03] MEDS ORDERED: SODIUM BICARBONATE 50 MEQ/50 ML VIAL IV ONE (10:55)
[2020-09-03] MEDS ORDERED: HYDROCORTISONE 100 MG VIAL IV SCH (11:00)
[2020-09-03] MEDS: INSULIN REGULAR 100 UNIT/ML SUBCUT SCH ×3 (11:40→23:17)
[2020-09-03] MEDS: MULTIVITAMIN INJ 10 ML, ZINC/COPPER/MANGANESE/SELENIUM 1 ML in AMINO ACIDS/DEXT/LYTES 5... IV SCH (17:05)
[2020-09-03] MEDS: FAT EMULSION 20% 250 ML IV SCH (18:41)
[2020-09-03] MEDS: ERTAPENEM 1,000 MG in SODIUM CHLORIDE 0.9% 100 ML IV SCH (21:38)
[2020-09-04] MEDS: metroNIDAZOLE INJ 500 MG in PREMIX 1 EACH IV SCH ×2 (02:21→08:02)
[2020-09-04] MEDS: ALBUTEROL/IPRATROPIUM 3 ML NEB RESP TX SCH ×4 (03:17→19:52)
[2020-09-04] MEDS: HEPARIN 5,000 UNIT/1 ML VIAL SUBCUT SCH ×3 (04:00→21:44)
[2020-09-04 04:29] LABS: Basophils % 0.1 % (0.0-0.8); Hematocrit 22.1 VOL% (42.0-52.0); Hemoglobin 7.7 GM/DL (14.0-18.0); Immature Granulocytes % 4.8 %; Immature Granulocytes Absolute 1.02 #; Lymphocytes # 0.7 10*3/uL (1.4-4.0); Lymphocytes % 3.1 % (21.2-54.2); Mean Corpuscular HGB Conc 34.8 GM/DL (32-36); Monocytes % 13.4 % (1.7-12.7); Neutrophils % 78.6 % (38.7-73.9); Platelet Count 124 T/CUMM (130-400); Red Blood Count 2.87 MC/CUMM (3.8-5.5); White Blood Count 21.3 T/CUMM (4-12)
[2020-09-04 04:40] LABS: ABG Base Excess -8.2 MMOL/L (-2.5-2.5); ABG HCO3 16.8 MMOL/L (20-26); ABG Oxygen Saturation 97.7 % (95-100); ABG PH 7.337 (7.35-7.45); ABG PO2 116.6 MM HG (80-95); ABG TCO2 17.7 MMOL/L (23-27)
[2020-09-04 04:49] LABS: Hypochromasia 1+; Lymphocytes 8 % (20-55); Microcytosis 1+; Segmented Neutrophils 84 % (50-85); Total Cells Counted 100
[2020-09-04 05:00] LABS: Calcium 7.8 MG/DL (8.5-10.1); Osmolality,Calculated 316.2 MOS/KG (273-304); Potassium 3.4 MMOL/L (3.5-5.1)
[2020-09-04] MEDS: ALBUMIN 25% 12.5 GM/50 ML VIAL IV SCH ×3 (05:22→21:44)
[2020-09-04] MEDS: INSULIN REGULAR 100 UNIT/ML SUBCUT SCH ×3 (05:22→18:31)
[2020-09-04] MEDS: HYDROCORTISONE 100 MG VIAL IV SCH ×2 (08:02→21:44)
[2020-09-04] MEDS: PANTOPRAZOLE 40 MG VIAL IV SCH (08:02)
[2020-09-04] MEDS ORDERED: GLUCAGON 1 MG VIAL IM PRN (12:02)
[2020-09-04] MEDS: FAT EMULSION 20% 250 ML IV SCH (14:18)
[2020-09-04] MEDS ORDERED: SELENIUM IV SCH (17:00)
[2020-09-04] MEDS ORDERED: ELECTROLYTE IV SCH (17:00)
[2020-09-04] MEDS ORDERED: ZINC IV SCH (17:00)
[2020-09-04] MEDS ORDERED: [UNRECOGNIZED DRUG - OTHER] IV SCH (17:00)
[2020-09-04] MEDS ORDERED: COPPER IV SCH (17:00)
[2020-09-04] MEDS ORDERED: MANGANESE IV SCH (17:00)
[2020-09-04 18:13] LABS: Neutrophils,Peritoneal Fluid 83 %
[2020-09-04 18:14] LABS: RBC,Peritoneal Fluid 520 T/CUMM
[2020-09-04] MEDS: MIDAZOLAM 100 MG in SODIUM CHLORIDE 0.9% 80 ML IV PRN (18:19)
[2020-09-04] MEDS: ERTAPENEM 1,000 MG in SODIUM CHLORIDE 0.9% 100 ML IV SCH (21:43)
[2020-09-05] MEDS: ALBUTEROL/IPRATROPIUM 3 ML NEB RESP TX SCH ×4 (00:24→19:30)
[2020-09-05] MEDS: INSULIN REGULAR 100 UNIT/ML SUBCUT SCH ×5 (00:40→23:38)
[2020-09-05 03:32] LABS: Basophils # 0.1 10*3/uL (0.0-0.2); Basophils % 0.2 % (0.0-0.8); Hematocrit 25.2 VOL% (42.0-52.0); Hemoglobin 8.5 GM/DL (14.0-18.0); Immature Granulocytes % 5.3 %; Immature Granulocytes Absolute 1.79 #; Lymphocytes % 2.9 % (21.2-54.2); Mean Corpuscular HGB Conc 33.7 GM/DL (32-36); Mean Corpuscular Volume 76.6 FL (87-102); Monocytes % 13.5 % (1.7-12.7); Neutrophils % 78.1 % (38.7-73.9); Platelet Count 133 T/CUMM (130-400); Red Blood Count 3.29 MC/CUMM (3.8-5.5); Red Cell Distribution Width 16.8 % (9.3-17.3); White Blood Count 33.8 T/CUMM (4-12)
[2020-09-05 03:52] LABS: Alanine Aminotransferase < 6 U/L (16-61); Albumin 2.6 G/DL (3.4-5.0); Alkaline Phosphatase 42 U/L (45-117); Aspartate Amino Transferase 10 U/L (0-37); Blood Urea Nitrogen 111 MG/DL (7-18); Calcium 8.3 MG/DL (8.5-10.1); Carbon Dioxide 20 MMOL/L (21-32); Estimated Glom Filtration Rate 14 ML/MIN; Glucose 333 MG/DL (74-106); Osmolality,Calculated 313.4 MOS/KG (273-304); Potassium 3.4 MMOL/L (3.5-5.1); Sodium 133 MMOL/L (136-145); Total Protein 5.5 G/DL (6.4-8.2)
[2020-09-05 04:19] LABS: Lymphocytes 4 % (20-55); Segmented Neutrophils 83 % (50-85); Total Cells Counted 100
[2020-09-05 04:20] LABS: Hypochromasia Slight; Platelet Estimate Normal
[2020-09-05 04:21] LABS: Burr Cells 2+
[2020-09-05 04:25] LABS: Allen Test Positive; Pt O2 Delivery Device Ventilator
[2020-09-05 04:28] LABS: ABG HCO3 17.9 MMOL/L (20-26); ABG Oxygen Saturation 96.7 % (95-100); ABG PCO2 41.2 MM HG (35-48); ABG PH 7.262 (7.35-7.45); ABG PO2 98.7 MM HG (80-95); ABG TCO2 17.5 MMOL/L (23-27)
[2020-09-05] MEDS: ALBUMIN 25% 12.5 GM/50 ML VIAL IV SCH ×3 (06:34→21:47)
[2020-09-05] MEDS: HEPARIN 5,000 UNIT/1 ML VIAL SUBCUT SCH ×3 (06:35→21:47)
[2020-09-05] MEDS: PANTOPRAZOLE 40 MG VIAL IV SCH (08:20)
[2020-09-05] MEDS: HYDROCORTISONE 100 MG VIAL IV SCH ×2 (08:20→20:57)
[2020-09-05] MEDS: PHENYLEPHRINE DRIP 40 MG/250 ML PREMIX IV PRN (12:02)
[2020-09-05] MEDS: FAT EMULSION 20% 250 ML IV SCH (16:10)
[2020-09-05] MEDS ORDERED: ZINC IV SCH (17:00)
[2020-09-05] MEDS ORDERED: MULTIVITAMIN IV SCH (17:00)
[2020-09-05] MEDS ORDERED: DEXTROSE 50% IV SCH (17:00)
[2020-09-05] MEDS ORDERED: MANGANESE IV SCH (17:00)
[2020-09-05] MEDS ORDERED: INSULIN REGULAR IV SCH (17:00)
[2020-09-05] MEDS ORDERED: COPPER IV SCH (17:00)
[2020-09-05] MEDS ORDERED: AMINO ACIDS 10% IV SCH (17:00)
[2020-09-05] MEDS ORDERED: SELENIUM IV SCH (17:00)
[2020-09-05] MEDS ORDERED: [UNRECOGNIZED DRUG - OTHER] IV SCH (17:00)
[2020-09-05] MEDS ORDERED: NOREPINEPHRINE 4 MG/4 ML VIAL IV ONE (17:17)
[2020-09-05] MEDS: NOREPINEPHRINE 8 MG in SODIUM CHLORIDE 0.9% 242 ML IV PRN (17:23)
[2020-09-05] MEDS: ERTAPENEM 1,000 MG in SODIUM CHLORIDE 0.9% 100 ML IV SCH (20:59)
[2020-09-05] MEDS: DEXTROSE 50% 25 GM/50 ML VIAL IV PRN ×2 (22:47→23:19)
[2020-09-06] MEDS: ALBUTEROL/IPRATROPIUM 3 ML NEB RESP TX SCH ×4 (00:29→20:11)
[2020-09-06] MEDS: INSULIN REGULAR 100 UNIT/ML SUBCUT SCH ×3 (05:00→17:35)
[2020-09-06 05:10] LABS: ABG Base Excess -6.7 MMOL/L (-2.5-2.5); ABG HCO3 18.9 MMOL/L (20-26); ABG PH 7.323 (7.35-7.45); ABG TCO2 17.3 MMOL/L (23-27); Allen Test Positive; Pt O2 Delivery Device Ventilator
[2020-09-06] MEDS: ALBUMIN 25% 12.5 GM/50 ML VIAL IV SCH (05:30)
[2020-09-06] MEDS: HEPARIN 5,000 UNIT/1 ML VIAL SUBCUT SCH ×3 (05:43→23:12)
[2020-09-06 05:50] LABS: Basophils # 0.1 10*3/uL (0.0-0.2); Basophils % 0.4 % (0.0-0.8); Hematocrit 25.8 VOL% (42.0-52.0); Hemoglobin 9.1 GM/DL (14.0-18.0); Immature Granulocytes % 7.4 %; Immature Granulocytes Absolute 2.48 #; Lymphocytes # 1.8 10*3/uL (1.4-4.0); Lymphocytes % 5.2 % (21.2-54.2); Mean Corpuscular HGB Conc 35.3 GM/DL (32-36); Mean Corpuscular Volume 74.8 FL (87-102); Mean Platelet Volume 12.7 FL (9.6-12.0); Monocytes % 10.5 % (1.7-12.7); NRBC # 0.02 10*3/uL; Neutrophils % 76.5 % (38.7-73.9); Platelet Count 148 T/CUMM (130-400); Red Blood Count 3.45 MC/CUMM (3.8-5.5); Red Cell Distribution Width 16.6 % (9.3-17.3); White Blood Count 33.7 T/CUMM (4-12)
[2020-09-06 06:15] LABS: Hypochromasia 1+; Lymphocytes 9 % (20-55); Platelet Estimate Adequate; Segmented Neutrophils 83 % (50-85); Total Cells Counted 100
[2020-09-06 06:16] LABS: Microcytosis Slight; Ovalocytes Slight
[2020-09-06 06:17] LABS: Alanine Aminotransferase < 6 U/L (16-61); Albumin 2.6 G/DL (3.4-5.0); Alkaline Phosphatase 42 U/L (45-117); Aspartate Amino Transferase 11 U/L (0-37); Blood Urea Nitrogen 116 MG/DL (7-18); Calcium 8.4 MG/DL (8.5-10.1); Carbon Dioxide 20 MMOL/L (21-32); Estimated Glom Filtration Rate 13 ML/MIN; Glucose 117 MG/DL (74-106); Osmolality,Calculated 305.2 MOS/KG (273-304); Potassium 4.2 MMOL/L (3.5-5.1); Sodium 134 MMOL/L (136-145); Total Protein 5.8 G/DL (6.4-8.2)
[2020-09-06] MEDS: PANTOPRAZOLE 40 MG VIAL IV SCH (08:11)
[2020-09-06] MEDS: HYDROCORTISONE 100 MG VIAL IV SCH ×2 (08:11→21:50)
[2020-09-06] MEDS: DEXTROSE 50% 25 GM/50 ML VIAL IV PRN (11:40)
[2020-09-06] MEDS: NOREPINEPHRINE 8 MG in SODIUM CHLORIDE 0.9% 242 ML IV PRN (12:25)
[2020-09-06] MEDS: FAT EMULSION 20% 250 ML IV SCH (14:24)
[2020-09-06] MEDS: ZINC/COPPER/MANGANESE/SELENIUM 1 ML, MULTIVITAMIN INJ 10 ML in AMINO ACIDS/DEXT/LYTES 4... IV SCH (17:00)
[2020-09-07] MEDS: INSULIN REGULAR 100 UNIT/ML SUBCUT SCH ×5 (01:14→23:45)
[2020-09-07] MEDS: ALBUTEROL/IPRATROPIUM 3 ML NEB RESP TX SCH ×4 (02:01→18:15)
[2020-09-07 03:40] LABS: Basophils % 0.1 % (0.0-0.8); Hematocrit 21.5 VOL% (42.0-52.0); Hemoglobin 7.4 GM/DL (14.0-18.0); Immature Granulocytes % 9.2 %; Immature Granulocytes Absolute 2.51 #; Lymphocytes # 1.7 10*3/uL (1.4-4.0); Lymphocytes % 6.4 % (21.2-54.2); Mean Corpuscular HGB Conc 34.4 GM/DL (32-36); Mean Corpuscular Volume 75.7 FL (87-102); Mean Platelet Volume 12.6 FL (9.6-12.0); Neutrophils % 70.3 % (38.7-73.9); Platelet Count 131 T/CUMM (130-400); Red Blood Count 2.84 MC/CUMM (3.8-5.5); Red Cell Distribution Width 16.2 % (9.3-17.3); White Blood Count 27.2 T/CUMM (4-12)
[2020-09-07 03:59] LABS: Alanine Aminotransferase < 6 U/L (16-61); Albumin 2.2 G/DL (3.4-5.0); Alkaline Phosphatase 37 U/L (45-117); Aspartate Amino Transferase 7 U/L (0-37); Blood Urea Nitrogen 129 MG/DL (7-18); Calcium 8.2 MG/DL (8.5-10.1); Carbon Dioxide 20 MMOL/L (21-32); Estimated Glom Filtration Rate 15 ML/MIN; Glucose 169 MG/DL (74-106); Osmolality,Calculated 313.2 MOS/KG (273-304); Sodium 134 MMOL/L (136-145); Total Protein 4.9 G/DL (6.4-8.2)
[2020-09-07 04:01] LABS: ABG HCO3 17.4 MMOL/L (20-26); ABG Oxygen Saturation 95.5 % (95-100); ABG PCO2 30.3 MM HG (35-48); ABG PH 7.378 (7.35-7.45); ABG PO2 89.3 MM HG (80-95); ABG TCO2 18.4 MMOL/L (23-27)
[2020-09-07 04:10] LABS: Lymphocytes 8 % (20-55); Segmented Neutrophils 80 % (50-85); Total Cells Counted 100
[2020-09-07 04:12] LABS: Hypochromasia 2+; Platelet Estimate Normal
[2020-09-07 04:13] LABS: Microcytosis 1+; Ovalocytes 2+
[2020-09-07] MEDS: HEPARIN 5,000 UNIT/1 ML VIAL SUBCUT SCH ×3 (06:39→21:01)
[2020-09-07] MEDS: HYDROCORTISONE 100 MG VIAL IV SCH ×2 (08:13→21:01)
[2020-09-07] MEDS: PANTOPRAZOLE 40 MG VIAL IV SCH (08:14)
[2020-09-07] MEDS: FAT EMULSION 20% 250 ML IV SCH (14:35)
[2020-09-07] MEDS: ZINC/COPPER/MANGANESE/SELENIUM 1 ML, MULTIVITAMIN INJ 10 ML in AMINO ACIDS/DEXT/LYTES 4... IV SCH (16:35)
[2020-09-07] MEDS: LEVOFLOXACIN INJ 500 MG/100 ML PREMIX IV SCH (16:41)
[2020-09-07] MEDS: MAGNESIUM SULF RIDER 2 GM/50 ML PREMIX IV PRN (19:27)
[2020-09-08] MEDS: ALBUTEROL/IPRATROPIUM 3 ML NEB RESP TX SCH ×4 (00:51→20:01)
[2020-09-08 04:19] LABS: ABG Base Excess -6.3 MMOL/L (-2.5-2.5); ABG HCO3 19.3 MMOL/L (20-26); ABG Oxygen Saturation 98.5 % (95-100); ABG PCO2 32.6 MM HG (35-48); ABG PH 7.358 (7.35-7.45); ABG TCO2 16.6 MMOL/L (23-27); Allen Test Positive; Pt O2 Delivery Device Ventilator
[2020-09-08 04:52] LABS: Basophils % 0.1 % (0.0-0.8); Eosinophils % 0.1 % (0.00-10.9); Hematocrit 21.6 VOL% (42.0-52.0); Hemoglobin 7.5 GM/DL (14.0-18.0); Immature Granulocytes % 10.9 %; Lymphocytes # 1.1 10*3/uL (1.4-4.0); Lymphocytes % 5.4 % (21.2-54.2); Mean Corpuscular HGB Conc 34.7 GM/DL (32-36); Mean Corpuscular Volume 74.5 FL (87-102); Mean Platelet Volume 12.3 FL (9.6-12.0); Neutrophils % 71.5 % (38.7-73.9); Platelet Count 140 T/CUMM (130-400)
[2020-09-08 05:15] LABS: Lymphocytes 7 % (20-55); Metamyelocytes 2 %; Myelocytes 1 %; Segmented Neutrophils 85 % (50-85); Total Cells Counted 100
[2020-09-08 05:16] LABS: Hypochromasia 1+; Microcytosis 1+; Ovalocytes Few; Target Cells Few
[2020-09-08 05:17] LABS: Platelet Estimate Adequate
[2020-09-08 05:18] LABS: Alanine Aminotransferase < 6 U/L (16-61); Albumin 2.1 G/DL (3.4-5.0); Alkaline Phosphatase 47 U/L (45-117); Aspartate Amino Transferase 10 U/L (0-37); Blood Urea Nitrogen 122 MG/DL (7-18); Calcium 8.3 MG/DL (8.5-10.1); Carbon Dioxide 21 MMOL/L (21-32); Estimated Glom Filtration Rate 19 ML/MIN; Glucose 185 MG/DL (74-106); Osmolality,Calculated 316.8 MOS/KG (273-304); Potassium 3.6 MMOL/L (3.5-5.1); Sodium 137 MMOL/L (136-145); Total Protein 5.3 G/DL (6.4-8.2)
[2020-09-08] MEDS: HEPARIN 5,000 UNIT/1 ML VIAL SUBCUT SCH ×3 (05:39→22:12)
[2020-09-08] MEDS: INSULIN REGULAR 100 UNIT/ML SUBCUT SCH ×3 (05:39→18:15)
[2020-09-08] MEDS: MIDAZOLAM 100 MG in SODIUM CHLORIDE 0.9% 80 ML IV PRN (05:41)
[2020-09-08] MEDS: PANTOPRAZOLE 40 MG VIAL IV SCH (08:53)
[2020-09-08] MEDS: HYDROCORTISONE 100 MG VIAL IV SCH ×2 (08:54→20:22)
[2020-09-08] MEDS ORDERED: DEXMEDETOMIDINE 200 MCG in SODIUM CHLORIDE 0.9% 48 ML IV PRN (13:00)
[2020-09-08] MEDS ORDERED: SODIUM CHLORIDE 0.9% 1,000 ML IV PRN (13:24)
[2020-09-08] MEDS: LINEZOLID INJ 600 MG/300 ML PREMIX IV SCH (17:04)
[2020-09-08] MEDS: ZINC/COPPER/MANGANESE/SELENIUM 1 ML, MULTIVITAMIN INJ 10 ML in AMINO ACIDS/DEXT/LYTES 4... IV SCH (17:04)
[2020-09-09] MEDS: INSULIN REGULAR 100 UNIT/ML SUBCUT SCH ×4 (00:27→18:50)
[2020-09-09] MEDS: ALBUTEROL/IPRATROPIUM 3 ML NEB RESP TX SCH ×4 (00:35→19:52)
[2020-09-09] MEDS: DEXMEDETOMIDINE 400 MCG in SODIUM CHLORIDE 0.9% 96 ML IV PRN (00:47)
[2020-09-09] MEDS ORDERED: NOREPINEPHRINE 4 MG/4 ML VIAL IV ONE (01:03)
[2020-09-09] MEDS: NOREPINEPHRINE 8 MG in SODIUM CHLORIDE 0.9% 242 ML IV PRN ×2 (01:10→01:12)
[2020-09-09] MEDS: LINEZOLID INJ 600 MG/300 ML PREMIX IV SCH ×2 (04:35→20:02)
[2020-09-09 04:38] LABS: ABG Base Excess -5.8 MMOL/L (-2.5-2.5); ABG HCO3 18.4 MMOL/L (20-26); ABG Oxygen Saturation 96.5 % (95-100); ABG PCO2 31.6 MM HG (35-48); ABG PH 7.384 (7.35-7.45); ABG PO2 96.3 MM HG (80-95); ABG TCO2 19.4 MMOL/L (23-27); Allen Test Positive; Pt O2 Delivery Device Ventilator
[2020-09-09 04:57] LABS: Basophils # 0.1 10*3/uL (0.0-0.2); Basophils % 0.3 % (0.0-0.8); Eosinophils % 0.1 % (0.00-10.9); Hematocrit 25.4 VOL% (42.0-52.0); Hemoglobin 8.8 GM/DL (14.0-18.0); Immature Granulocytes % 9.5 %; Immature Granulocytes Absolute 2.73 #; Lymphocytes # 1.1 10*3/uL (1.4-4.0); Lymphocytes % 3.8 % (21.2-54.2); Mean Corpuscular HGB Conc 34.6 GM/DL (32-36); Mean Corpuscular Volume 77.9 FL (87-102); Monocytes % 13.6 % (1.7-12.7); Neutrophils % 72.7 % (38.7-73.9); Platelet Count 156 T/CUMM (130-400); Red Blood Count 3.26 MC/CUMM (3.8-5.5); Red Cell Distribution Width 18.6 % (9.3-17.3); White Blood Count 28.8 T/CUMM (4-12)
[2020-09-09 05:08] LABS: Alanine Aminotransferase < 6 U/L (16-61); Albumin 2.1 G/DL (3.4-5.0); Alkaline Phosphatase 72 U/L (45-117); Aspartate Amino Transferase 13 U/L (0-37); Blood Urea Nitrogen 127 MG/DL (7-18); Calcium 8.6 MG/DL (8.5-10.1); Carbon Dioxide 22 MMOL/L (21-32); Estimated Glom Filtration Rate 24 ML/MIN; Glucose 146 MG/DL (74-106); Osmolality,Calculated 322.4 MOS/KG (273-304); Potassium 3.4 MMOL/L (3.5-5.1); Sodium 140 MMOL/L (136-145); Total Protein 5.4 G/DL (6.4-8.2)
[2020-09-09 06:01] LABS: Anisocytosis 2+; Atypical Lymphocytes Few; Band Neutrophils 6 % (0-10); Lymphocytes 10 % (20-55); Metamyelocytes 2 %; Platelet Estimate Normal; Poikilocytosis 1+; Segmented Neutrophils 69 % (50-85); Target Cells Few; Total Cells Counted 100
[2020-09-09 06:02] LABS: Burr Cells Few; Macrocytosis Slight; Ovalocytes Few; Smudge Cells Few
[2020-09-09] MEDS: HEPARIN 5,000 UNIT/1 ML VIAL SUBCUT SCH ×3 (06:03→21:06)
[2020-09-09] MEDS: PANTOPRAZOLE 40 MG VIAL IV SCH (08:01)
[2020-09-09] MEDS: HYDROCORTISONE 100 MG VIAL IV SCH ×2 (08:02→20:02)
[2020-09-09] MEDS ORDERED: ALBUMIN 5% 25 GM/500 ML VIAL IV ONE (10:24)
[2020-09-09 11:49] LABS: ABG Base Excess -5.1 MMOL/L (-2.5-2.5); ABG HCO3 20.2 MMOL/L (20-26); ABG Oxygen Saturation 96.6 % (95-100); ABG PCO2 34.5 MM HG (35-48); ABG PH 7.363 (7.35-7.45); ABG PO2 92.5 MM HG (80-95); ABG TCO2 18.1 MMOL/L (23-27); Allen Test Positive; Pt O2 Delivery Device Ventilator
[2020-09-09] MEDS: LEVOFLOXACIN INJ 500 MG/100 ML PREMIX IV SCH (16:06)
[2020-09-09 18:05] LABS: ABG Base Excess -5.1 MMOL/L (-2.5-2.5); ABG HCO3 19.2 MMOL/L (20-26); ABG Oxygen Saturation 93.5 % (95-100); ABG PCO2 32.3 MM HG (35-48); ABG PH 7.391 (7.35-7.45); ABG PO2 76.7 MM HG (80-95); ABG TCO2 20.1 MMOL/L (23-27)
[2020-09-10] MEDS: INSULIN REGULAR 100 UNIT/ML SUBCUT SCH ×4 (00:21→18:25)
[2020-09-10] MEDS: ALBUTEROL/IPRATROPIUM 3 ML NEB RESP TX SCH ×4 (00:57→19:53)
[2020-09-10 04:30] LABS: ABG Base Excess -3.6 MMOL/L (-2.5-2.5); ABG HCO3 20.1 MMOL/L (20-26); ABG Oxygen Saturation 94.1 % (95-100); ABG PCO2 31.8 MM HG (35-48); ABG PH 7.419 (7.35-7.45); ABG PO2 76.7 MM HG (80-95); ABG TCO2 21.1 MMOL/L (23-27); Allen Test Positive; Pt O2 Delivery Device Ventilator
[2020-09-10 05:08] LABS: Basophils % 0.2 % (0.0-0.8); Hematocrit 23.6 VOL% (42.0-52.0); Immature Granulocytes % 6.8 %; Immature Granulocytes Absolute 1.61 #; Lymphocytes # 1.1 10*3/uL (1.4-4.0); Lymphocytes % 4.6 % (21.2-54.2); Mean Corpuscular HGB Conc 33.9 GM/DL (32-36); Mean Corpuscular Volume 78.9 FL (87-102); Mean Platelet Volume 12.6 FL (9.6-12.0); Monocytes % 11.7 % (1.7-12.7); Neutrophils % 76.7 % (38.7-73.9); Platelet Count 162 T/CUMM (130-400); Red Blood Count 2.99 MC/CUMM (3.8-5.5); Red Cell Distribution Width 18.5 % (9.3-17.3); White Blood Count 23.7 T/CUMM (4-12)
[2020-09-10] MEDS: HEPARIN 5,000 UNIT/1 ML VIAL SUBCUT SCH ×3 (05:27→21:00)
[2020-09-10] MEDS: DEXMEDETOMIDINE 400 MCG in SODIUM CHLORIDE 0.9% 96 ML IV PRN (08:29)
[2020-09-10 08:33] LABS: Band Neutrophils 4 % (0-10); Lymphocytes 10 % (20-55); Metamyelocytes 1 %; Segmented Neutrophils 75 % (50-85); Total Cells Counted 100
[2020-09-10 08:34] LABS: Anisocytosis 2+; Macrocytosis 1+; Platelet Estimate Normal; Smudge Cells Few; Target Cells Few
[2020-09-10 08:35] LABS: Atypical Lymphocytes Few
[2020-09-10] MEDS ORDERED: POTASSIUM CHLORIDE 20 MEQ/15 ML UDCUP PER TUBE ONE ×2 (09:00→12:47)
[2020-09-10] MEDS: HYDROCORTISONE 100 MG VIAL IV SCH (09:16)
[2020-09-10] MEDS: LINEZOLID INJ 600 MG/300 ML PREMIX IV SCH ×2 (09:16→20:57)
[2020-09-10] MEDS: PANTOPRAZOLE 40 MG VIAL IV SCH (09:16)
[2020-09-10 11:44] LABS: Calcium 8.3 MG/DL (8.5-10.1); Osmolality,Calculated 324.6 MOS/KG (273-304); Potassium 2.6 MMOL/L (3.5-5.1)
[2020-09-10 13:10] LABS: ABG Base Excess -3.7 MMOL/L (-2.5-2.5); ABG HCO3 21.3 MMOL/L (20-26); ABG Oxygen Saturation 93.5 % (95-100); ABG PCO2 33.7 MM HG (35-48); ABG PH 7.395 (7.35-7.45); ABG PO2 74.1 MM HG (80-95); ABG TCO2 19.2 MMOL/L (23-27); Allen Test Positive; Pt O2 Delivery Device Ventilator
[2020-09-10 18:06] LABS: Calcium 8.5 MG/DL (8.5-10.1); Osmolality,Calculated 322.6 MOS/KG (273-304)
[2020-09-10] MEDS: LORazepam 2 MG/1 ML VIAL IV PRN (21:50)
[2020-09-11] MEDS: INSULIN REGULAR 100 UNIT/ML SUBCUT SCH ×4 (00:16→17:23)
[2020-09-11] MEDS: ALBUTEROL/IPRATROPIUM 3 ML NEB RESP TX SCH ×4 (02:05→18:16)
[2020-09-11 03:53] LABS: Basophils % 0.1 % (0.0-0.8); Eosinophils % 0.2 % (0.00-10.9); Immature Granulocytes % 4.6 %; Lymphocytes # 1.4 10*3/uL (1.4-4.0); Lymphocytes % 5.2 % (21.2-54.2); Mean Corpuscular HGB Conc 33.3 GM/DL (32-36); Mean Corpuscular Volume 80.5 FL (87-102); Mean Platelet Volume 12.3 FL (9.6-12.0); Monocytes % 13.2 % (1.7-12.7); Neutrophils % 76.7 % (38.7-73.9); Platelet Count 208 T/CUMM (130-400); Red Blood Count 2.98 MC/CUMM (3.8-5.5); Red Cell Distribution Width 19.6 % (9.3-17.3); White Blood Count 26.4 T/CUMM (4-12)
[2020-09-11 04:08] LABS: Albumin 2.2 G/DL (3.4-5.0); Bilirubin,Total 1.8 MG/DL (0.2-1.0); Calcium 8.3 MG/DL (8.5-10.1); Potassium 2.6 MMOL/L (3.5-5.1); Total Protein 5.7 G/DL (6.4-8.2)
[2020-09-11 04:16] LABS: Hypersegmented Neutrophil SLIGHT; Hypochromasia 1+; Lymphocytes 8 % (20-55); Metamyelocytes 1 %; Microcytosis 1+; Myelocytes 1 %; Ovalocytes Slight; Segmented Neutrophils 77 % (50-85); Total Cells Counted 100
[2020-09-11 04:17] LABS: Platelet Estimate Normal
[2020-09-11 04:18] LABS: Target Cells Few
[2020-09-11 04:41] LABS: ABG Base Excess -0.8 MMOL/L (-2.5-2.5); ABG HCO3 23.7 MMOL/L (20-26); ABG PCO2 34.2 MM HG (35-48); ABG PH 7.436 (7.35-7.45); ABG PO2 61.8 MM HG (80-95); ABG TCO2 21.1 MMOL/L (23-27); Allen Test Positive; Pt O2 Delivery Device Ventilator
[2020-09-11] MEDS: HEPARIN 5,000 UNIT/1 ML VIAL SUBCUT SCH ×3 (06:09→21:36)
[2020-09-11] MEDS ORDERED: POTASSIUM CHLORIDE 20 MEQ/15 ML UDCUP PO ONE (07:28)
[2020-09-11] MEDS ORDERED: MAGNESIUM SULF RIDER 4 GM/100 ML PREMIX IV ONE (07:28)
[2020-09-11] MEDS: HYDROCORTISONE 10 MG TABLET PO SCH (09:00)
[2020-09-11] MEDS: LINEZOLID INJ 600 MG/300 ML PREMIX IV SCH ×2 (09:01→20:51)
[2020-09-11] MEDS: PANTOPRAZOLE 40 MG VIAL IV SCH (09:01)
[2020-09-11] MEDS: SODIUM CHLOR 0.45% KCL 20 MEQ 20 MEQ/1,000 ML BAG IV SCH (14:44)
[2020-09-11] MEDS: LEVOFLOXACIN INJ 500 MG/100 ML PREMIX IV SCH (15:38)
[2020-09-11] MEDS ORDERED: METOPROLOL TARTRATE 5 MG/5 ML VIAL IV ONE ×2 (23:00→23:01)
[2020-09-11] MEDS: LORazepam 2 MG/1 ML VIAL IV PRN (23:35)
[2020-09-12] MEDS: SODIUM CHLOR 0.45% KCL 20 MEQ 20 MEQ/1,000 ML BAG IV SCH ×7 (00:55→21:39)
[2020-09-12] MEDS: INSULIN REGULAR 100 UNIT/ML SUBCUT SCH ×4 (00:56→18:26)
[2020-09-12] MEDS: ALBUTEROL/IPRATROPIUM 3 ML NEB RESP TX SCH ×4 (01:35→18:52)
[2020-09-12 04:21] LABS: ABG Base Excess 0.2 MMOL/L (-2.5-2.5); ABG HCO3 23.7 MMOL/L (20-26); ABG Oxygen Saturation 80.7 % (95-100); ABG PCO2 33.1 MM HG (35-48); ABG PH 7.472 (7.35-7.45); ABG PO2 48.7 MM HG (80-95); ABG TCO2 24.7 MMOL/L (23-27)
[2020-09-12 05:17] LABS: Calcium 8.6 MG/DL (8.5-10.1); Osmolality,Calculated 310.1 MOS/KG (273-304); Potassium 2.8 MMOL/L (3.5-5.1); Total Protein 5.5 G/DL (6.4-8.2)
[2020-09-12 05:29] LABS: Basophils % 0.1 % (0.0-0.8); Eosinophils % 0.1 % (0.00-10.9); Hematocrit 21.7 VOL% (42.0-52.0); Hemoglobin 7.5 GM/DL (14.0-18.0); Immature Granulocytes Absolute 0.47 #; Lymphocytes # 1.2 10*3/uL (1.4-4.0); Lymphocytes % 5.2 % (21.2-54.2); Mean Corpuscular HGB Conc 34.6 GM/DL (32-36); Mean Corpuscular Volume 79.8 FL (87-102); Mean Platelet Volume 12.6 FL (9.6-12.0); Monocytes % 9.7 % (1.7-12.7); Neutrophils % 82.9 % (38.7-73.9); Platelet Count 188 T/CUMM (130-400); Red Blood Count 2.72 MC/CUMM (3.8-5.5); Red Cell Distribution Width 19.7 % (9.3-17.3); White Blood Count 23.1 T/CUMM (4-12)
[2020-09-12 05:52] LABS: ABG Base Excess 1.3 MMOL/L (-2.5-2.5); ABG HCO3 25.3 MMOL/L (20-26); ABG Oxygen Saturation 79.3 % (95-100); ABG PCO2 35.9 MM HG (35-48); ABG PH 7.452 (7.35-7.45); ABG PO2 47.1 MM HG (80-95); ABG TCO2 23.5 MMOL/L (23-27)
[2020-09-12] MEDS ORDERED: POTASSIUM CHLORIDE RIDER 100 ML IV ONE (05:58)
[2020-09-12 06:03] LABS: Hypochromasia 1+; Lymphocytes 1 % (20-55); Microcytosis 1+; Platelet Estimate Adequate; Segmented Neutrophils 91 % (50-85); Total Cells Counted 100
[2020-09-12] MEDS: MAGNESIUM SULF RIDER 2 GM/50 ML PREMIX IV PRN (06:08)
[2020-09-12] MEDS: HEPARIN 5,000 UNIT/1 ML VIAL SUBCUT SCH ×3 (06:08→21:15)
[2020-09-12] MEDS: POTASSIUM CHLORIDE RIDER 10 MEQ in PREMIX 1 EACH IV SCH ×4 (06:09→10:42)
[2020-09-12] MEDS ORDERED: FUROSEMIDE 40 MG/4 ML VIAL ONE (07:53)
[2020-09-12] MEDS ORDERED: FUROSEMIDE 40 MG/4 ML VIAL IV ONE (07:53)
[2020-09-12] MEDS: PANTOPRAZOLE 40 MG VIAL IV SCH (08:17)
[2020-09-12] MEDS: HYDROCORTISONE 10 MG TABLET PO SCH (08:17)
[2020-09-12 09:03] LABS: ABG Base Excess -0.7 MMOL/L (-2.5-2.5); ABG HCO3 23.6 MMOL/L (20-26); ABG Oxygen Saturation 84.2 % (95-100); ABG PCO2 49.5 MM HG (35-48); ABG PH 7.322 (7.35-7.45)
[2020-09-12] MEDS: LINEZOLID INJ 600 MG/300 ML PREMIX IV SCH ×2 (10:00→20:11)
[2020-09-12] MEDS: METOPROLOL TARTRATE 5 MG/5 ML VIAL IV SCH ×2 (12:52→18:26)
[2020-09-12 13:22] LABS: Calcium 8.4 MG/DL (8.5-10.1); Osmolality,Calculated 304.6 MOS/KG (273-304); Potassium 3.5 MMOL/L (3.5-5.1)
[2020-09-13] MEDS: METOPROLOL TARTRATE 5 MG/5 ML VIAL IV SCH ×2 (01:46→05:04)
[2020-09-13] MEDS: INSULIN REGULAR 100 UNIT/ML SUBCUT SCH ×4 (01:46→20:50)
[2020-09-13] MEDS: ALBUTEROL/IPRATROPIUM 3 ML NEB RESP TX SCH ×4 (02:00→19:47)
[2020-09-13 03:32] LABS: Basophils % 0.1 % (0.0-0.8); Eosinophils # 0.1 10*3/uL (0.0-0.87); Eosinophils % 0.5 % (0.00-10.9); Hematocrit 22.9 VOL% (42.0-52.0); Hemoglobin 7.3 GM/DL (14.0-18.0); Immature Granulocytes % 1.8 %; Immature Granulocytes Absolute 0.37 #; Lymphocytes # 1.7 10*3/uL (1.4-4.0); Lymphocytes % 8.4 % (21.2-54.2); Mean Corpuscular HGB Conc 31.9 GM/DL (32-36); Mean Corpuscular Volume 83.6 FL (87-102); Mean Platelet Volume 12.5 FL (9.6-12.0); Monocytes % 7.5 % (1.7-12.7); Neutrophils % 81.7 % (38.7-73.9); Platelet Count 186 T/CUMM (130-400); Red Blood Count 2.74 MC/CUMM (3.8-5.5); Red Cell Distribution Width 20.8 % (9.3-17.3); White Blood Count 20.6 T/CUMM (4-12)
[2020-09-13 04:00] LABS: Band Neutrophils 1 % (0-10); Eosinophils 1 % (0-10); Hypochromasia 2+; Lymphocytes 4 % (20-55); Microcytosis 1+; Ovalocytes Slight; Platelet Estimate Adequate; Segmented Neutrophils 86 % (50-85); Total Cells Counted 100
[2020-09-13 04:01] LABS: Calcium 8.5 MG/DL (8.5-10.1); Osmolality,Calculated 298.7 MOS/KG (273-304); Potassium 3.4 MMOL/L (3.5-5.1)
[2020-09-13 04:26] LABS: ABG Base Excess 1.9 MMOL/L (-2.5-2.5); ABG HCO3 26.8 MMOL/L (20-26); ABG Oxygen Saturation 91.5 % (95-100); ABG PCO2 43.7 MM HG (35-48); ABG PH 7.406 (7.35-7.45); ABG PO2 67.9 MM HG (80-95); ABG TCO2 28.2 MMOL/L (23-27)
[2020-09-13] MEDS: MAGNESIUM SULF RIDER 2 GM/50 ML PREMIX IV PRN (04:44)
[2020-09-13] MEDS: HEPARIN 5,000 UNIT/1 ML VIAL SUBCUT SCH ×3 (05:04→21:25)
[2020-09-13] MEDS: SODIUM CHLOR 0.45% KCL 20 MEQ 20 MEQ/1,000 ML BAG IV SCH ×3 (05:34→20:33)
[2020-09-13] MEDS ORDERED: carvediloL 3.125 MG TABLET PO SCH (09:00)
[2020-09-13] MEDS: HYDROCORTISONE 10 MG TABLET PO SCH (09:27)
[2020-09-13] MEDS: PANTOPRAZOLE 40 MG VIAL IV SCH (09:28)
[2020-09-13] MEDS: LINEZOLID INJ 600 MG/300 ML PREMIX IV SCH ×2 (09:31→20:33)
[2020-09-13] MEDS ORDERED: METOPROLOL TARTRATE 5 MG/5 ML VIAL IV PRN (10:26)
[2020-09-13] MEDS: LEVOFLOXACIN INJ 500 MG/100 ML PREMIX IV SCH (15:31)
[2020-09-13] MEDS ORDERED: FUROSEMIDE 40 MG/4 ML VIAL IV ONE (15:44)
[2020-09-13] MEDS: METOPROLOL TARTRATE 25 MG TABLET PO SCH (21:18)
[2020-09-13] MEDS: TAMSULOSIN 0.4 MG CAPSULE PO SCH (21:19)
[2020-09-14] MEDS: ALBUTEROL/IPRATROPIUM 3 ML NEB RESP TX SCH ×4 (00:22→19:30)
[2020-09-14] MEDS: INSULIN REGULAR 100 UNIT/ML SUBCUT SCH ×4 (01:03→17:43)
[2020-09-14] MEDS: HEPARIN 5,000 UNIT/1 ML VIAL SUBCUT SCH (05:45)
[2020-09-14 06:34] LABS: Basophils % 0.2 % (0.0-0.8); Eosinophils # 0.1 10*3/uL (0.0-0.87); Eosinophils % 0.9 % (0.00-10.9); Hematocrit 19.5 VOL% (42.0-52.0); Hemoglobin 6.7 GM/DL (14.0-18.0); Immature Granulocytes % 1.3 %; Immature Granulocytes Absolute 0.16 #; Lymphocytes # 1.5 10*3/uL (1.4-4.0); Lymphocytes % 12.1 % (21.2-54.2); Mean Corpuscular HGB Conc 34.4 GM/DL (32-36); Mean Corpuscular Volume 80.9 FL (87-102); Monocytes % 9.7 % (1.7-12.7); Neutrophils % 75.8 % (38.7-73.9); Platelet Count 169 T/CUMM (130-400); Red Blood Count 2.41 MC/CUMM (3.8-5.5); Red Cell Distribution Width 20.2 % (9.3-17.3); White Blood Count 12.4 T/CUMM (4-12)
[2020-09-14] MEDS ORDERED: SODIUM CHLORIDE 0.9% 1,000 ML IV PRN (06:46)
[2020-09-14 06:53] LABS: Calcium 8.5 MG/DL (8.5-10.1); Osmolality,Calculated 293.7 MOS/KG (273-304)
[2020-09-14] MEDS ORDERED: MAGNESIUM SULF RIDER 2 GM/50 ML PREMIX IV PRN (08:54)
[2020-09-14] MEDS ORDERED: POTASSIUM CHLORIDE 20 MEQ TABLET PO PRN (08:55)
[2020-09-14] MEDS ORDERED: POTASSIUM CHLORIDE 20 MEQ/15 ML UDCUP PER TUBE PRN (08:55)
[2020-09-14] MEDS: METOPROLOL TARTRATE 25 MG TABLET PO SCH ×2 (09:19→20:48)
[2020-09-14] MEDS: PANTOPRAZOLE 40 MG VIAL IV SCH (09:19)
[2020-09-14] MEDS: HYDROCORTISONE 10 MG TABLET PO SCH (09:19)
[2020-09-14] MEDS: LINEZOLID INJ 600 MG/300 ML PREMIX IV SCH ×2 (09:20→20:40)
[2020-09-14] MEDS ORDERED: POTASSIUM CHLORIDE 20 MEQ PACK PO ONE (10:00)
[2020-09-14 10:33] LABS: Amorphous Crystals,Urine Few /HPF (Few); Bacteria,Urine Occasional /HPF (Few); Bilirubin,Urine Negative (Negative); Blood, Urine Small mg/dL (Negative); Glucose,Urine (UA) Negative (Negative); Ketones,Urine Negative (Negative); Mucus,Urine Occasional /LPF (Occasional); Nitrite,Urine Negative (Negative); Protein,Urine Negative; RBC,Urine 2 /HPF (0-4); Squamous Epithelial Cell,Urine Occasional /HPF (0-10); Urine Appearance CLEAR (Clear); Urine Color Yellow (Yellow); Urine Specific Gravity 1.009 (1.001-1.035); Urine Urobilinogen < 2.0 EU/DL (0.2-1.0)
[2020-09-14] MEDS: MAGNESIUM SULF RIDER 4 GM/100 ML PREMIX IV PRN (11:23)
[2020-09-14] MEDS: LORazepam 2 MG/1 ML VIAL IV PRN ×2 (12:44→22:45)
[2020-09-14 20:26] LABS: Hematocrit 27.4 VOL% (42.0-52.0); Hemoglobin 9.1 GM/DL (14.0-18.0)
[2020-09-14] MEDS: POTASSIUM CHLORIDE RIDER 10 MEQ in PREMIX 1 EACH IV PRN (20:42)
[2020-09-14] MEDS: TAMSULOSIN 0.4 MG CAPSULE PO SCH (20:48)
[2020-09-15] MEDS: POTASSIUM CHLORIDE RIDER 10 MEQ in PREMIX 1 EACH IV PRN ×4 (00:39→04:57)
[2020-09-15] MEDS: INSULIN REGULAR 100 UNIT/ML SUBCUT SCH ×4 (01:20→17:58)
[2020-09-15] MEDS: SODIUM CHLOR 0.45% KCL 20 MEQ 20 MEQ/1,000 ML BAG IV SCH ×2 (01:36→10:34)
[2020-09-15] MEDS: ALBUTEROL/IPRATROPIUM 3 ML NEB RESP TX SCH ×4 (01:52→19:40)
[2020-09-15 05:02] LABS: Basophils % 0.2 % (0.0-0.8); Eosinophils # 0.1 10*3/uL (0.0-0.87); Eosinophils % 0.6 % (0.00-10.9); Hematocrit 27.4 VOL% (42.0-52.0); Immature Granulocytes % 0.9 %; Lymphocytes # 1.3 10*3/uL (1.4-4.0); Lymphocytes % 11.5 % (21.2-54.2); Mean Corpuscular HGB Conc 32.8 GM/DL (32-36); Mean Corpuscular Volume 84.6 FL (87-102); Mean Platelet Volume 12.4 FL (9.6-12.0); Monocytes % 11.8 % (1.7-12.7); Platelet Count 142 T/CUMM (130-400); Red Blood Count 3.24 MC/CUMM (3.8-5.5); Red Cell Distribution Width 19.6 % (9.3-17.3); White Blood Count 11.6 T/CUMM (4-12)
[2020-09-15 05:27] LABS: Alanine Aminotransferase < 9 U/L (16-61); Albumin 2.2 G/DL (3.4-5.0); Alkaline Phosphatase 74 U/L (45-117); Aspartate Amino Transferase 17 U/L (0-37); Blood Urea Nitrogen 22 MG/DL (7-18); Calcium 8.7 MG/DL (8.5-10.1); Carbon Dioxide 31 MMOL/L (21-32); Estimated Glom Filtration Rate 91 ML/MIN; Glucose 86 MG/DL (74-106); Osmolality,Calculated 295.3 MOS/KG (273-304); Potassium 3.1 MMOL/L (3.5-5.1); Sodium 148 MMOL/L (136-145); Total Protein 5.9 G/DL (6.4-8.2)
[2020-09-15] MEDS: METOPROLOL TARTRATE 25 MG TABLET PO SCH ×2 (08:51→20:48)
[2020-09-15] MEDS: HYDROCORTISONE 10 MG TABLET PO SCH (08:51)
[2020-09-15] MEDS: LINEZOLID INJ 600 MG/300 ML PREMIX IV SCH ×2 (08:53→20:47)
[2020-09-15] MEDS: LORazepam 2 MG/1 ML VIAL IV PRN (08:55)
[2020-09-15] MEDS ORDERED: DEXTROSE 50% 25 GM/50 ML VIAL IV PRN (12:49)
[2020-09-15] MEDS: TAMSULOSIN 0.4 MG CAPSULE PO SCH (20:48)
[2020-09-16] MEDS: INSULIN REGULAR 100 UNIT/ML SUBCUT SCH ×4 (00:16→18:22)
[2020-09-16] MEDS: ALBUTEROL/IPRATROPIUM 3 ML NEB RESP TX SCH ×4 (00:53→19:16)
[2020-09-16 07:05] LABS: Basophils % 0.1 % (0.0-0.8); Eosinophils # 0.1 10*3/uL (0.0-0.87); Eosinophils % 0.9 % (0.00-10.9); Hematocrit 25.2 VOL% (42.0-52.0); Hemoglobin 8.3 GM/DL (14.0-18.0); Immature Granulocytes % 0.8 %; Immature Granulocytes Absolute 0.08 #; Lymphocytes # 1.2 10*3/uL (1.4-4.0); Lymphocytes % 12.6 % (21.2-54.2); Mean Corpuscular HGB Conc 32.9 GM/DL (32-36); Mean Corpuscular Volume 84.8 FL (87-102); Mean Platelet Volume 11.9 FL (9.6-12.0); Monocytes % 13.6 % (1.7-12.7); Platelet Count 124 T/CUMM (130-400); Red Blood Count 2.97 MC/CUMM (3.8-5.5); Red Cell Distribution Width 19.9 % (9.3-17.3); White Blood Count 9.6 T/CUMM (4-12)
[2020-09-16 07:16] LABS: Calcium 8.4 MG/DL (8.5-10.1); Osmolality,Calculated 291.4 MOS/KG (273-304); Potassium 3.1 MMOL/L (3.5-5.1)
[2020-09-16] MEDS: SODIUM CHLOR 0.45% KCL 20 MEQ 20 MEQ/1,000 ML BAG IV SCH (07:35)
[2020-09-16] MEDS: MAGNESIUM SULF RIDER 2 GM/50 ML PREMIX IV PRN (09:24)
[2020-09-16] MEDS: HYDROCORTISONE 10 MG TABLET PO SCH (09:33)
[2020-09-16] MEDS: METOPROLOL TARTRATE 25 MG TABLET PO SCH ×2 (09:33→20:48)
[2020-09-16 09:34] LABS: Hypochromasia 3+; Microcytosis 1+; Platelet Estimate Adequate; Target Cells Few
[2020-09-16] MEDS ORDERED: SULFAMETHOX/TRIMETHOPRIM 400-80 MG TABLET PO SCH (14:30)
[2020-09-16] MEDS: DEXT 5% NACL 0.45% KCL 40 MEQ 40 MEQ/1,000 ML BAG IV SCH (15:58)
[2020-09-16] MEDS: TAMSULOSIN 0.4 MG CAPSULE PO SCH (20:48)
[2020-09-16] MEDS: SULFAMETHOX/TRIMETHOPRIM 800-160 MG TABLET PO SCH (20:48)
[2020-09-17] MEDS: DEXT 5% NACL 0.45% KCL 40 MEQ 40 MEQ/1,000 ML BAG IV SCH ×3 (00:29→21:14)
[2020-09-17] MEDS: INSULIN REGULAR 100 UNIT/ML SUBCUT SCH ×5 (00:30→23:32)
[2020-09-17] MEDS: ALBUTEROL/IPRATROPIUM 3 ML NEB RESP TX SCH ×4 (01:23→20:07)
[2020-09-17] MEDS: SODIUM CHLOR 0.45% KCL 20 MEQ 20 MEQ/1,000 ML BAG IV SCH (06:15)
[2020-09-17 06:35] LABS: Basophils % 0.2 % (0.0-0.8); Eosinophils # 0.1 10*3/uL (0.0-0.87); Eosinophils % 0.9 % (0.00-10.9); Hematocrit 26.6 VOL% (42.0-52.0); Hemoglobin 8.7 GM/DL (14.0-18.0); Immature Granulocytes % 0.6 %; Immature Granulocytes Absolute 0.06 #; Lymphocytes # 1.3 10*3/uL (1.4-4.0); Mean Corpuscular HGB Conc 32.7 GM/DL (32-36); Mean Corpuscular Volume 86.1 FL (87-102); Mean Platelet Volume 12.4 FL (9.6-12.0); Monocytes % 14.9 % (1.7-12.7); Neutrophils % 70.4 % (38.7-73.9); Platelet Count 110 T/CUMM (130-400); Red Blood Count 3.09 MC/CUMM (3.8-5.5); Red Cell Distribution Width 20.1 % (9.3-17.3); White Blood Count 10.1 T/CUMM (4-12)
[2020-09-17 07:00] LABS: Calcium 8.7 MG/DL (8.5-10.1); Osmolality,Calculated 294.3 MOS/KG (273-304); Potassium 2.9 MMOL/L (3.5-5.1)
[2020-09-17] MEDS: HYDROCORTISONE 10 MG TABLET PO SCH (09:17)
[2020-09-17] MEDS: METOPROLOL TARTRATE 25 MG TABLET PO SCH ×2 (09:17→21:14)
[2020-09-17] MEDS: SULFAMETHOX/TRIMETHOPRIM 800-160 MG TABLET PO SCH ×2 (09:17→21:14)
[2020-09-17] MEDS ORDERED: POTASSIUM CHLORIDE 20 MEQ TABLET PO ONE (09:57)
[2020-09-17] MEDS: MAGNESIUM SULF RIDER 4 GM/100 ML PREMIX IV PRN (10:24)
[2020-09-17] MEDS: TAMSULOSIN 0.4 MG CAPSULE PO SCH (21:14)
[2020-09-18] MEDS: ALBUTEROL/IPRATROPIUM 3 ML NEB RESP TX SCH ×4 (02:08→19:42)
[2020-09-18] MEDS: INSULIN REGULAR 100 UNIT/ML SUBCUT SCH ×3 (05:50→18:27)
[2020-09-18 05:54] LABS: Basophils % 0.1 % (0.0-0.8); Eosinophils # 0.1 10*3/uL (0.0-0.87); Hematocrit 25.2 VOL% (42.0-52.0); Hemoglobin 7.8 GM/DL (14.0-18.0); Immature Granulocytes % 0.6 %; Immature Granulocytes Absolute 0.05 #; Lymphocytes # 1.4 10*3/uL (1.4-4.0); Lymphocytes % 15.6 % (21.2-54.2); Mean Corpuscular Volume 88.7 FL (87-102); Mean Platelet Volume 11.1 FL (9.6-12.0); Monocytes % 16.5 % (1.7-12.7); Neutrophils % 66.2 % (38.7-73.9); Red Blood Count 2.84 MC/CUMM (3.8-5.5); White Blood Count 8.7 T/CUMM (4-12)
[2020-09-18 06:12] LABS: Calcium 8.4 MG/DL (8.5-10.1); Osmolality,Calculated 293.3 MOS/KG (273-304); Potassium 3.3 MMOL/L (3.5-5.1)
[2020-09-18] MEDS: DEXT 5% NACL 0.45% KCL 40 MEQ 40 MEQ/1,000 ML BAG IV SCH ×2 (06:23→14:01)
[2020-09-18 06:38] LABS: Platelet Count 84 T/CUMM (130-400)
[2020-09-18 06:47] LABS: Eosinophils 1 % (0-10); Hypochromasia 2+; Lymphocytes 12 % (20-55); Microcytosis 1+; Platelet Estimate Decreased; Segmented Neutrophils 79 % (50-85); Total Cells Counted 100
[2020-09-18] MEDS: METOPROLOL TARTRATE 25 MG TABLET PO SCH ×2 (08:22→21:21)
[2020-09-18] MEDS: HYDROCORTISONE 10 MG TABLET PO SCH (08:22)
[2020-09-18] MEDS: SULFAMETHOX/TRIMETHOPRIM 800-160 MG TABLET PO SCH ×2 (08:22→21:21)
[2020-09-18] MEDS: TAMSULOSIN 0.4 MG CAPSULE PO SCH (21:21)
[2020-09-19] MEDS: ALBUTEROL/IPRATROPIUM 3 ML NEB RESP TX SCH ×3 (00:03→12:36)
[2020-09-19] MEDS: INSULIN REGULAR 100 UNIT/ML SUBCUT SCH ×3 (00:36→13:04)
[2020-09-19] MEDS: DEXT 5% NACL 0.45% KCL 40 MEQ 40 MEQ/1,000 ML BAG IV SCH (07:19)
[2020-09-19] MEDS: SULFAMETHOX/TRIMETHOPRIM 800-160 MG TABLET PO SCH (09:12)
[2020-09-19] MEDS: HYDROCORTISONE 10 MG TABLET PO SCH (09:23)
[2020-09-19] MEDS: METOPROLOL TARTRATE 25 MG TABLET PO SCH (09:55)
[2020-09-19 17:30] VITALS: BP 124/73
== END 2020-09-19 18:48 | disposition hospice, home (50) | DRG 870 ==
LOC: N.ED 22:43 → SUATTDRO 08-29 04:13 → N.EDINP 08-29 04:13 → N.CC 08-29 04:37 → N.3E 09-13 13:01
PROVIDERS: ADMIT Internal Medicine; ATTEND Internal Medicine